=== PATIENT | male | born 1945 | race Caucasian/White ===

== ENCOUNTER 2017-09-12 14:34 | Inpatient (IN) | payer OTHER ==
[~2017-09-12] VITALS: Ht 172.7 cm; Wt 78.5 kg
--- NOTE | ~2017-09-12 | EKG ---
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 : 1945 Requested By: Kavon Aguilar Order Number: [id number] Reading MD: Measurements Intervals [place] Rate: 75 P: NM: QRS: -56 QRSD: 112 T: 153 QT: 348 QTc: 389 Interpretive Statements Atrial fibrillation Ventricular tachycardia, unsustained Borderline IVCD with LAD RSR' in V1 or V2, right VCD or RVH Inferior infarct, old Consider anterior infarct Lateral leads are also involved Compared to ECG 09/13/2017 07:21:52 Ventricular tachycardia now present Right ventricular hypertrophy now present RSR' in V1 or V2 now present Myocardial infarct finding still present [email or web address] By: 9 9 Epiphany EpiphanyMD /ANAMIKA
--- NOTE | ~2017-09-12 | EKG ---
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
--- NOTE | ~2017-09-12 | EKG ---
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 By: 3 Epiphany Epiphany, /ANAMIKA
[2017-09-12 14:37] VITALS: BP 128/45
[2017-09-12] MEDS ORDERED: TYLENOL325 MG PO ×2 (14:43)
[2017-09-12] MEDS ORDERED: ACCUNEB SO1.25 MG/1 INH (14:44)
[2017-09-12] MEDS ORDERED: ASPIR 8181 MG PO (14:44)
[2017-09-12] MEDS ORDERED: LIPITOR40 MG PO (14:44)
[2017-09-12] MEDS ORDERED: SYMBICORT160 MCG/4. INH (14:44)
[2017-09-12] MEDS ORDERED: B12INJ IM (14:45)
[2017-09-12] MEDS ORDERED: CELEXA20 MG PO (14:45)
[2017-09-12] MEDS ORDERED: VITAMIN D2000 UNIT PO (14:45)
[2017-09-12] MEDS ORDERED: IRON325 PO (14:46)
[2017-09-12] MEDS ORDERED: FOLIC ACID1 MG PO ×2 (14:46)
[2017-09-12] MEDS ORDERED: TOPROL XL25 MG PO ×2 (14:47)
[2017-09-12] MEDS ORDERED: METFORMIN HCL500 MG PO ×2 (14:47)
[2017-09-12] MEDS ORDERED: BACTROBAN CREAM30 G1 TOP (14:51)
[2017-09-12] MEDS ORDERED: NICOTINE LOZENGE2 MG PO ×2 (14:52)
[2017-09-12] MEDS ORDERED: PROTONIX 20 MG20 M1 PO (14:53)
[2017-09-12] MEDS ORDERED: XARELTO15 MG PO ×2 (14:53)
[2017-09-12] MEDS ORDERED: SPIRIVA INH (14:54)
[2017-09-12] MEDS ORDERED: SPIRONOLACTONE25 M1 PO ×2 (14:54)
[2017-09-12] MEDS ORDERED: FUROSEMIDE 20 M20 MG PO ×2 (14:55)
[2017-09-12] MEDS ORDERED: NITROGLYCERIN0.4 MG SUBLING (14:55)
[2017-09-12] MEDS ORDERED: GOLD BOND BODY TOP (14:55)
[2017-09-12] MEDS ORDERED: NEURONTIN 300300 M1 PO ×2 (14:56)
[2017-09-12] MEDS ORDERED: NEURONTIN600 MG PO ×2 (14:57)
[2017-09-12] MEDS ORDERED: PRINIVIL20 M1 PO (14:57)
[2017-09-12 15:38] LABS: ABSOLUTE EOSINOPHILS 0.1 thou/uL (0.0-0.7); ABSOLUTE LYMPHOCYTES 1.2 thou/uL (0.8-5.3); ABSOLUTE MONOCYTES 1.3 thou/uL (0.0-1.2); ABSOLUTE NEUTROPHILS 5.1 thou/uL (1.6-8.1); BASOPHILS 0.6 %; EOSINOPHILS 1.1 %; HEMATOCRIT 27.6 % (42.0-52.0); LYMPHOCYTES 15.5 %; MCH 29.7 pg (26.0-34.0); MCHC 32.5 g/dL (28.0-37.0); MCV 91.6 fL (80.0-100.0); MONOCYTES 17.2 %; MPV 9.1 fl. (7.2-11.1); NUCLEATED RBCS 0 /100WBC; PLATELET COUNT* 207 thou/uL (150-400); POLYS 65.6 %; RBC 3.01 mil/uL (4.50-6.00); RDW-CV 17.5 % (10.5-14.5); WBC 7.8 thou/uL (4.0-11.0)
[2017-09-12 15:46] LABS: CALCIUM 8.5 mg/dL (8.5-10.1); CREATININE 1.4 mg/dL (0.6-1.3); POTASSIUM 4.3 mmol/L (3.5-5.1)
[2017-09-12 15:51] LABS: ALBUMIN 2.8 g/dL (3.4-5.0); TOTAL BILIRUBIN 0.5 mg/dL (<0.1-1.0); TOTAL PROTEIN 6.9 g/dL (6.4-8.2)
[2017-09-12 17:07] VITALS: BP 143/77
--- NOTE | 2017-09-12 17:45 | NUR ---
PT ARRIVED TO ROOM 102 VIA CART. IV VANCOMYCIN INFUSING. PT ORIENTED TO ROOM. CALL LIGHT WITHIN REACH. INSTRUCTED ON CALLING FOR ASSIST IN GETTING OUT OF BED
[2017-09-12 17:56] VITALS: BP 132/104
[2017-09-12 20:00] VITALS: BP 105/69
--- NOTE | 2017-09-13 04:39 | NUR ---
ASSUMED CARE OF PATIENT AT APPROXIMATELY 1999. UPON FIRST ASSESSMENT, PATIENT C/O PAIN IN HIS RIGHT FOOT D/T GANGRENE. PATIENT WAS GIVEN PAIN MEDICATION X 1 OVERNIGHT. PATIENT CONTINUES TO BE ON 2 LITERS O2 AND SATTING ABOVE 93%. INFECTIOUS DISEASE CONSULTED FOR PATIENT. PATIENT HAS A VANC TROUGH SCHEDULED FOR 09/14/17 AT 0830. MRI OF PATIENT'S RIGHT FOOT W/O CONTRAST IS ALSO SCHEDULED FOR TODAY (09/13/17). PEDAL PULSES ARE 1+ BILATERALLY IN LOWER EXTREMETIES. SCABS PRESENT ON BOTH LEGS, BUT ARE CLOSED AND ALMOST HEALED. HOURLY ROUNDING PERFORMED. NURSING TO FOLLOW-UP NECESSARY. ALL FALL PRECAUTIONS IN PLACE, INCLUDING CALL LIGHT WITHIN REACH. WILL CONTINUE TO MONITOR CLOSELY.
[2017-09-13 08:06] LABS: TROPONIN-I LEVEL <0.06 ng/mL (<0.06)
[2017-09-13 08:25] VITALS: BP 130/47
--- NOTE | 2017-09-13 08:30 | NUR ---
PT ARRIVED ON THE UNIT FROM [facility] AT 0825. REPORT TAKEN FRON DENISE. AGREE WITH HER ASSESSMENT. PT ON CARDIAC MONITER TRACING A-FIB. MADE PT COMFORTABLE. BED IN LOW POSITION CALL LIGHT IN REACH. FALL CONTRACT SIGNED WELL PT RIGHTS. PT SIGNED CONSENT FORM FOR MRI. .
[2017-09-13 12:00] VITALS: BP 135/54
--- NOTE | 2017-09-13 13:05 | EKG ---
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 MORALES : 1945 Requested By: Carolyne Avila Order Number: [id number] MD: Scott Zaragoza Measurements Intervals [place] Rate: 71 P: NM: QRS: -59 QRSD: 113 T: 83 QT: 440 QTc: 479 Interpretive Statements Atrial fibrillation Borderline IVCD with LAD Inferior infarct, old Probable anterior infarct, old No previous ECG available for comparison Electronically Signed On 09-13-2017 13:05:21 TURN SEWER by Scott Zaragoza [email or web address] <ELECTRONICALLY SIGNED> By: Scott Zaragoza MD, [facility] 09/13/17 [id number] [id number] 161 Scott Zaragoza MD, [facility] /EPI
--- NOTE | 2017-09-13 13:11 | EKG ---
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 DE LA FUENTE : 1945 Requested By: Donaldo Varela Order Number: [id number] MD: Scott Zaragoza Measurements Intervals [place] Rate: 66 P: [place]: QRS: 242 QRSD: 121 T: 104 QT: 451 QTc: 473 Interpretive Statements Atrial fibrillation inferior infarction old Nonspecific IVCD with LAD Anterolateral infarct, old Baseline wander in lead(s) I Electronically Signed On 09-13-2017 13:10:54 GARAGE DOOR INSTALLER by Scott Zaragoza [email or web address] <ELECTRONICALLY SIGNED> By: Scott Zaragoza MD, [facility] 09/13/17 1310 0 Scott Zaragoza MD, [facility] /EPI
[2017-09-13 14:00] VITALS: BP 130/52
--- NOTE | 2017-09-13 17:59 | NUR ---
PT HAS RESTED IN ROOM WATCHING TV OR SPEAKING ON THE PHONE. SENT DR LOYA YOU CALL REQUESTING TYLENOL FOR PTS TEMP OF 102.8. ORDER GIVEN. PT STILL HAS A TEMP BUT IS TRENDING DOWN AND IS NOW 102.2. PT HAS HAD NO S OR SX OF ADVERSE REACTION TO ABT. HE C/O PAIN IN HIS KNEE X1 AND WAS GIVEN 4MG OF MORPHINE. PT STATES THE PAIN HAS MOVED DOWN TO A 7 FROM A 9 SO WAS PARTIALLY EFFECTIVE. EDUCATION GIVEN ON DEMAND. HOURLY ROUNDING COMPLETE.
[2017-09-13 20:00] VITALS: BP 100/44
[2017-09-14 00:01] VITALS: BP 160/61
[2017-09-14 04:00] VITALS: BP 106/55
--- NOTE | 2017-09-14 05:26 | NUR ---
A&O X4 CALM COOPERITVE. PT REPORTS PAIN IN LEGS BELOW KNEE, GIVEN MEDICATIONS PT REPORTS PAIN IS "BETTER". VANCO TROUGH TODAY. PT HAS HAS A TEMP GIVEN TYLENOL, FEVOR SHOWN IMPROVEMENT. X1 MODERATE ASSITE. Q2 TURNS. SWAP OF ABSESS SENT TO LAB. 3L O2. PT X1 INCIDENT TACKYPNEA. BP PULSE WNL. FALL PRECAUTIONS IN PLACE. HOURLY ROUNDING FOR SAFETY
[2017-09-14 07:30] VITALS: BP 85/42
--- NOTE | 2017-09-14 10:44 | CON ---
[address] [address] CONSULTATION Name: IMTIAZ BRISCOE Room: [address] IN .R.#: [id number] Admission: 09/12/17 Attend Phys: Vane Kovacs Discharge: Date of : 41 Report #: [id number] THIS REPORT FOR: //name// CC: FAM unknown [facility] Kavon Aguilar DATE OF SERVICE: 09/13/2017 ATTENDING PHYSICIAN: Kavon Aguilar DO. REASON FOR EVALUATION: Deep infection, right foot, area of tissue necrosis involving the lateral aspect overlying the fifth metatarsal. HISTORY OF PRESENT ILLNESS: Chart reviewed, patient examined. This is a 72-year-old with significant medical history including diabetes mellitus type 2, also O2 requiring chronic obstructive pulmonary disease who has ongoing issue with right lateral foot wounds, presumably on the basis of pressure, I think there must be some degree of ischemia as well. He did note he has had recent evaluation including a dye test involving his lower extremity as recently as last [place], has not heard results. He noted increasing pain associated with the site. He normally gets his treatment at the [facility], in particular wound care clinic, but he was diverted due to the hospital being full. He believes he has had fevers and did experience some shaking chills as well over the course of the last 24 hours, although that has improved. Blood cultures are sterile thus far. Sed rate is 30. Plain film of the foot showed focal lucency within the lateral soft tissues at the level of the fifth metatarsophalangeal joint. No evidence of osteomyelitis. Lactic acid is 1.2. Creatinine is 1.4. He was started empirically on piperacillin/tazobactam as well as vancomycin. ALLERGIES: None known. MEDICATIONS: Include spironolactone, metoprolol, citalopram, atorvastatin, ferrous sulfate, pantoprazole, Zosyn, gabapentin, vancomycin, nitroglycerin, ondansetron, morphine. PAST MEDICAL HISTORY: As noted above, diabetes mellitus, chronic obstructive pulmonary disease, O2 requiring; hypertension, previous partial colectomy, appendectomy. SOCIAL HISTORY: Nonsmoker and distant ethanol use. FAMILY HISTORY: Noncontributory. REVIEW OF SYSTEMS: As above. Denies significant pulmonary related complaints. He had some nausea with emesis earlier in the week[place] [address] CONSULTATION Name: IMTIAZ BRISCOE Room: [address]#: [id number] Admission: 09/12/17 Attend Phys: Vane Kovacs Discharge: Date of : 41 Report #: [id number]. PHYSICAL EXAMINATION: GENERAL: Appears chronically ill, undernourished. He has mild to moderate distress. VITAL SIGNS: Temperature 100.2, pulse 68, respirations 20, blood pressure 130/47. SKIN: Warm, dry, no rashes. HEENT: Neck is supple. Oxygen per nasal cannula. LUNGS: Scattered coarse breath sounds, diminished. HEART: Distant, regular. I do not appreciate murmur. ABDOMEN: Soft, nontender, nondistended. EXTREMITIES: Distal right lower extremity lateral aspect overlying the fifth metatarsophalangeal joint has a blackened eschar. There is some moderate degree of marginal erythema. It is quite tender across the dorsum of the foot. Pulses appear to be diminished. There is an odor noted. GENITOURINARY: Deferred. RECTAL: Deferred. LABORATORY DATA: Blood cultures sterile thus far. CPK 29, troponin less than 0.06. Sed rate of 20. CRP of 20.8. CBC: White count of 7.8, H and H 9.0/27.6, platelets of 207. Electrolytes: Sodium 138, potassium 4.3, chloride 98, bicarbonate is 34, BUN and creatinine 24 and 1.4, anion gap of 6. LFTs unremarkable. Albumin of 2.8, total protein 6.9, estimated GFR of 50. 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 I think it is probably multifactorial etiology; seemingly there is secondary skin necrosis, perhaps complicated by infection. I think it is reasonable to continue empiric antimicrobial therapy at this point, may well need debridement per Vascular to evaluate possible ischemic component as well. We will try to optimize his nutritional status. Wound care as prescribed. <ELECTRONICALLY SIGNED> By: Richard Mills MD 09/14/17 1044 1211 [id number] Mills MD /nt
[2017-09-14 11:00] LABS: CALCIUM 7.9 mg/dL (8.5-10.1); CREATININE 2.1 mg/dL (0.6-1.3); POTASSIUM 4.6 mmol/L (3.5-5.1)
[2017-09-14 11:36] VITALS: BP 114/59
--- NOTE | 2017-09-14 11:54 | NUR ---
WOUND NURSE: PATIENT SEEN TO ADDRESS LESION ON THE RIGHT 5TH METATARSAL AND HEEL WOUND. RT METATARSAL LESION PRESENTS WITH STABLE BLACKENED ESCHAR MEASURING 2.0 X 2.5 CM. RIGHT HEEL LESION PRESENTS A SHALLOW OPEN FULL THICKNESS WOUND MEASURING 0.9 X 0.9 X 0.2 CM. PRESENT WITH DARK RED, NONGRANULATING TISSUE IN THE WOUND BED AND SMALL AMOUNT OF ACTIVE SANGUINOUS DRAINAGE. PERIWOUND TISSUE APPEARS CALLOUSED. WAS UNABLE TO DOPPLAR POSTERIOR TIBIAL OR DORSALIS PEDIS PULSES AND CAPILLARY REFILL IN TOES WAS 10 SECONDS. CLEANSED RIGHT FOOT WITH SOAP AND WATER, RINSED WITH WATER, THEN PATTED DRY. APPLIED AQUACEL AG UNDER ABD TO HEEL AND SWABBED METATARSAL WOUND WITH BETADINE, THEN WRAPPED WITH KERLEX ROLL GAUZE AND SECURED WITH TAPE. PATIENT TO RECEIVE HEELMEDIX BOOT TO OFFLOAD HEEL WOUND. PATIENT HAS VASCULAR CONSULT AND NURSE REPORTS PATIENT WAS SEEN BY [facility] THIS MORNING. DR. LOYA ALSO STATED HE ORDERED ARTERIAL STUDY FOR THIS PATIENT. PATIENT REPORTS THAT THE WOUND ON HIS HEEL HAS BEEN THERE FOR 2 MONTHS AND THAT HE HAS BEEN HAVING IT TREATED AT THE [facility].
--- NOTE | 2017-09-14 14:59 | NUR ---
RECEIVED PT CARE 0700. PT IS DROWSY, EASY TO ARROUSE, AND ORIENTED X4. BLOOD PRESSURE SOFT, 85/42. HELD AM BP MEDICATION. O2 SAT 100% ON 3L NC. TITRATED DOWN TO 2L NC. AM ASSESSMENT CHARTED. MEDS PER OCT. AGRICULTURAL EXTENSION SPECIALIST IN TO SEE THIS PATIENT AND DO A DRESSING CHANGE TO RIGHT FOOT. NEW WOUND PICTURE TAKEN OF PATIENTS RIGHT HEEL AND PLACED ON CHART. TO VOID, PATIENT SITS ON THE EDGE OF THE BED AND USES THE URINAL. PATIENT TRANSFERS FROM BED TO WHEELCHAIR WITH ASSIST X1-2. NEW COMPLAINTS OF RIGHT HIP PAIN THIS AFTERNOON. XRAY ORDERED PER DR CRONIN. HOSPITALIST RECOMMENDING PATIENT BE TRANSFERRED TO THE [facility] FOR CONTINUITY OF CARE. CASE MANAGEMENT FOLLOWING. BED ALARM ON. CALL LIGHT WITHIN REACH. WILL CONTINUE PLAN OF CARE.
--- NOTE | 2017-09-14 15:10 | NUR ---
CM ASSESSMENT: Pt was very sleepy but answered a few questions. Pt normally lives at home and is pretty independent. Pt wears [facility]. Pt has a walker that he can use as needed. Hx of HH through the [facility]. Per , [facility], which [facility] he normally receives all of his care, spoke with Phoebe with the [facility] transfer team [phone], she informed that they are on diversion. CM following.
[2017-09-14 16:00] VITALS: BP 172/55
[2017-09-14 17:28] LABS: CALCIUM 7.9 mg/dL (8.5-10.1); CREATININE 2.2 mg/dL (0.6-1.3); POTASSIUM 4.8 mmol/L (3.5-5.1)
--- NOTE | 2017-09-14 19:13 | NUR ---
PT PARTIALLY PROGRESSING TOWARDS GOALS. C/O RIGHT LEG/FOOT PAIN THROUGHOUT SHIFT. STATES HE CAN HARDLY MOVE IT ANYMORE. HEELS ELEVATED ON PILLOWS. PRAFO BOOT ORDERED AND PLACED ON PATIENT, BUT HE DID NOT TOLERATE THIS WELL AND MADE ME REMOVE THE BOOT. EDUCATED THE PATIENT ON THE IMPORTANCE OF KEEPING HIS HEELS OFF THE BED. IVF STARTED AND INFUSING PATENTLY. PRN PAIN MEDICATION GIVEN WITH PARTIAL RELIEF. PT REPOSITIONED FOR COMFORT. CONTINUES TO VOID PER URINAL. NO BOWEL MOVEMENT NOTED THIS SHIFT. TOLERATING HIS DIET WELL WITHOUT NAUSEA OR VOMITING. NO PLANS TO TRANSFER THIS PATIENT TO THE [facility] AT THIS TIME, THE [facility] IS ON DIV[facility]ION. CALL LIGHT WITHIN REACH. HOURLY ROUNDING CHARTED. BED ALARM ON.
[2017-09-14 20:00] VITALS: BP 90/45
[2017-09-15] VITALS (7 sets, daily range): BP systolic 103–137; BP diastolic 50–71
[2017-09-15 05:57] LABS: CALCIUM 7.7 mg/dL (8.5-10.1); CREATININE 2.1 mg/dL (0.6-1.3); POTASSIUM 4.1 mmol/L (3.5-5.1)
--- NOTE | 2017-09-15 06:56 | NUR ---
A&O X4 CALM COOPERITVE. PT REPORTS PAIN IN LEGS, GIVEN MORPHINE WITH RELIEF. 2L O2. OTHRO CAME IN AM REPORTED THAT VASCULAR NEEDS TO BE MORE SPECIFIC WITH WHAT IS GOING ON WITH PT WOUNDS. FLUIDS RUNNING. LUNGS ARE COARSE CRACKLES. PT DENIES ANY SOA. PT AFIB ON THE MONITOR HAD BOUTS OF 110-120 IN THE EARLY AM. VITALS WNL. FALL PRECAUTIONS IN PLACE. HOURLY ROUNDING FOR SAFETY.
[2017-09-15 15:29] LABS: HEMATOCRIT 27.4 % (42.0-52.0); HEMOGLOBIN 8.7 gm/dL (14.0-18.0); MCH 29.3 pg (26.0-34.0); MCHC 31.7 g/dL (28.0-37.0); MCV 92.6 fL (80.0-100.0); MPV 9.4 fl. (7.2-11.1); NUCLEATED RBCS 0 /100WBC; PLATELET COUNT* 174 thou/uL (150-400); RBC 2.96 mil/uL (4.50-6.00); RDW-CV 18.1 % (10.5-14.5); WBC 13.3 thou/uL (4.0-11.0)
[2017-09-15 15:48] LABS: ABSOLUTE EOSINOPHILS 0.5 thou/uL (0.0-0.7); ABSOLUTE LYMPHOCYTES 0.5 thou/uL (0.8-5.3); ABSOLUTE MONOCYTES 0.1 thou/uL (0.0-1.2); ABSOLUTE NEUTROPHILS 12.1 thou/uL (1.6-8.1); ANISOCYTOSIS 1+; POIKILOCYTOSIS 1+
[2017-09-15 15:49] LABS: PLATELET ESTIMATE ADEQUATE
--- NOTE | 2017-09-15 17:25 | 2DMMODE ---
[place] [address] 2 D/M-MODE ECHOCARDIOGRAM Name: IMTIAZ BRISCOE Room: [address] IN [facility]#: [id number] Admission: 09/12/17 Attend Phys: Kavon Aguilar Discharge: Date of : 41 Date of Service: 09/15/17 1724 Report #: [id number] THIS REPORT FOR: //name// APPROVED REPORT Study performed: 09/15/2017 14:54:27 EXAM: Comprehensive 2D, Doppler, and color-flow Echocardiogram Patient Location: In-Patient Room #: [facility] Status: routine BSA: 1.88 HR: 110 bpm BP: 112/56 mmHg Rhythm: Atrial Fibrillation Other Information Study Quality: Good Indications Congestive Heart Failure 2D Dimensions LVEF(%): 40.57 (>50%) IVSd: 12.89 (7-11mm) LVOT Diam: 19.33 (18-24mm) LVDd: 47.49 mm PWd: 11.33 (7-11mm) Ascending Ao: 33.43 (22-36mm) LVDs: 38.10 (25-40mm) Aortic Root: 34.64 mm Urias's LVEF: 40.57 % Volumes Left Atrial Volume (Systole) LA ESV Index: 45.90 mL/m2 Aortic Valve AoV Peak Augustus.: 1.46 m/s AO Peak Gr.: 8.52 mmHg LVOT Max P.25 mmHg AO Mean Gr.: 4.61 mmHg LVOT Mean P.51 mmHg LVOT Max V: 0.90 m/s AO V2 VTI: 20.55 cm LVOT Mean V: 0.56 m/s NAVEEN (VTI): 1.95 cm2 LVOT V1 VTI: 13.68 cm Mitral Valve MV Decel. Time: 141.04 [place] [address] 2 D/M-MODE ECHOCARDIOGRAM Name: IMTIAZ BRISCOE Room: [address] IN [facility]#: [id number] Admission: 09/12/17 Attend Phys: Kavon Aguilar Discharge: Date of : 41 Date of Service: 09/15/17 1724 Report #: [id number] MV PHT: 40.90 ms MVA (PHT): 5.38 cm2 TDI Medial E' Augustus.: 0.11 m/s Lateral E' Augustus.: 0.16 m/s Pulmonary Valve PV Peak Augustus.: 0.86 m/s PV Peak Gr.: 2.97 mmHg Tricuspid Valve TR Peak Gr.: 49.07 mmHg RVSP: 59.00 mmHg Left Ventricle The left ventricle is normal size. There is global hypokinesis of the left ventricle. Moderate concentric left ventricular hypertrophy. Left ventricular systolic function is moderate to severely decreased. LVEF is 35%. The left ventricular diastolic function is normal. Right Ventricle Right ventricle is dilated. The right ventricular systolic function is normal. Atria Left atrium is severely dilated. Right atrium is moderately dilated. Aortic Valve Severe aortic valve sclerosis. No aortic regurgitation is present. Mild to moderate aortic stenosis. Mitral Valve Mitral valve leaflets are moderately thickened. Mild mitral regurgitation. No evidence of mitral valve stenosis. Tricuspid Valve The tricuspid valve is normal in structure. Moderate tricuspid regurgitation. The RVSP is 55-60 mmHg. Pulmonic Valve The pulmonary valve is normal in structure. There is no pulmonic valvular regurgitation. Great Vessels The aortic root is normal in size[place] [address] 2 D/M-MODE ECHOCARDIOGRAM Name: IMTIAZ BRISCOE Room: [address] IN [facility]#: [id number] Admission: 09/12/17 Attend Phys: Kavon Agiular Discharge: Date of : 41 Date of Service: 09/15/17 1724 Report #: [id number] dilated. Pericardium There is no pericardial effusion. <Conclusion> Left ventricular systolic function is moderate to severely decreased. LVEF is 35%. There is global hypokinesis of the left ventricle. Right ventricle is dilated. Left atrium is severely dilated. Right atrium is moderately dilated. Severe aortic valve sclerosis. Mild to moderate aortic stenosis. No aortic regurgitation is present. No evidence of mitral valve stenosis. Mild mitral regurgitation. Moderate tricuspid regurgitation. The RVSP is 55-60 mmHg. <ELECTRONICALLY SIGNED> By: Gelacio Quan MD, [facility] 09/15/17 1724 23 23 Gelacio Quan MD, FACC /INF
--- NOTE | 2017-09-15 18:00 | NUR ---
PT ABLE TO ANSWER ORIENTATION QUESTIONS. PT DROWSY. PT C/O OF BILATERAL LOWER LEG PAIN. IV PAIN MEDICATION ADMININSTERED PER EMAR. PT C/O OF PAIN IN CHEST WHEN COUGHING. PT HAD SMALL BM TODAY. PT VOIDING DARK YELLOW URINE. PT HAD TEMP OF 101.1. TYELNOL ADMININSTERED PER EMAR. FEET ELEVATE. PT REFUSED COMPRESSION BOOTS. PT BUTTOCKS IS RED AND NOT BLANCHABLE. PT REPOSITIONED. PT TO HAVE PROCEDURE TOMORROW PT REPORTS HE DID NOT TALK TO AND DOES NOT KNOW ABOUT A PROCEDURE TOMORROW. CONSENT NOT SIGNED. UPDATE GIVEN TO PT SO.
[2017-09-16 00:34] VITALS: BP 98/48
[2017-09-16 04:34] VITALS: BP 95/62
--- NOTE | 2017-09-16 05:18 | NUR ---
PT CARE ASSUMED AFTER REPORT. ASSESSMENT COMPLETE. AFIB ON MONITOR. NPO SINCE MIDNOC FOR SURGERY TODAY. IVF INFUSING. PT DROWSY AND IMPULSIVE. FALL PRECAUTIONS IN PLACE INCLUDING BED ALARM. SLOW TO PROGRESS TOWARDS GOALS.
[2017-09-16 06:01] LABS: HEMATOCRIT 25.7 % (42.0-52.0); HEMOGLOBIN 8.3 gm/dL (14.0-18.0); MCH 29.5 pg (26.0-34.0); MCHC 32.4 g/dL (28.0-37.0); MCV 91.2 fL (80.0-100.0); MPV 9.7 fl. (7.2-11.1); PLATELET COUNT* 163 thou/uL (150-400); RBC 2.81 mil/uL (4.50-6.00); RDW-CV 17.7 % (10.5-14.5); WBC 10.7 thou/uL (4.0-11.0)
[2017-09-16 06:42] LABS: CALCIUM 7.8 mg/dL (8.5-10.1); CREATININE 2.2 mg/dL (0.6-1.3); MAGNESIUM 1.5 mg/dL (1.8-2.4); POTASSIUM 4.4 mmol/L (3.5-5.1); TOTAL BILIRUBIN 0.8 mg/dL (<0.1-1.0); TOTAL PROTEIN 5.8 g/dL (6.4-8.2)
[2017-09-16 08:00] VITALS: BP 125/66
--- NOTE | 2017-09-16 08:00 | NUR ---
AM ASSESSEMENT COMPLETE, DEFER TO COMPUTER CHARTING. SERVICE PORTER TRACKING AFIB. ORIENTED TO SELF ONLY, CONFUSED - ATTEMPTED TO REORIENTATE PATIENT UNABLE AT THIS TIME. REPORTS HAVING DISCOMFORT IN LEGS, WILL GIVE REPEAT PAIN MEDICATION WITH AM MEDS. LUNGS COARSE/CRACKLES - 02 ON 2L PER NC, HOB ELEVATED. BED ALARM ON FOR SAFETY. CALL LIGHT WITHIN REACH. WILL MONITOR.
[2017-09-16 12:46] VITALS: BP 103/48
[2017-09-16 12:57] LABS: ABSOLUTE LYMPHOCYTES 1.1 thou/uL (0.8-5.3); ABSOLUTE MONOCYTES 0.9 thou/uL (0.0-1.2); ABSOLUTE NEUTROPHILS 8.8 thou/uL (1.6-8.1); ATYPICAL LYMPHS 7 %
[2017-09-16 12:59] LABS: ANISOCYTOSIS 3+; BURR CELLS 2+; HYPOCHROMASIA 1+; OVALOCYTES 2+; POIKILOCYTOSIS 2+; SCHISTOCYTES 1+
[2017-09-16 13:00] LABS: PLATELET ESTIMATE DECREASED; POLYCHROMASIA 1+
[2017-09-16 16:03] VITALS: BP 106/62
--- NOTE | 2017-09-16 18:29 | NUR ---
MEDICAL STAFF COORDINATOR TRACKING WITH NO CHANGE IN RHYTHM. CONFUSED TODAY, ATTEMPTING TO GET OUT OF BED ON AND OFF DURING SHIFT. PATIENT MOVED CLOSE TO NURSES STATION FOR SAFETY, BED ALARM REMAINS ON - CALL LIGHT WITHIN REACH. IV INFUSING, DRESSING CHANGED. HOB ELEVATED, 02 ON 2L PER NC. WILL CONTINUE WITH PLAN OF CARE.
[2017-09-16 20:00] VITALS: BP 128/68
[2017-09-16 23:22] LABS: HEMATOCRIT 26.1 % (42.0-52.0); HEMOGLOBIN 8.4 gm/dL (14.0-18.0); MCH 30.1 pg (26.0-34.0); MCHC 32.3 g/dL (28.0-37.0); MPV 9.9 fl. (7.2-11.1); RBC 2.81 mil/uL (4.50-6.00); RDW-CV 18.6 % (10.5-14.5); WBC 13.4 thou/uL (4.0-11.0)
[2017-09-17] VITALS: BP 115/63
[2017-09-17 04:00] VITALS: BP 130/47
--- NOTE | 2017-09-17 05:23 | NUR ---
PT CARE ASSUMED AFTER REPORT. ASSESSMENT COMPLETE. AFIB ON MONITOR. IVF INFUSING. DRESSING TO R FOOT C/D/I. ELEVATED ON PILLOWS. O2 2L NC. ORIENTED X1. BELIEVES HE IS IN [place]. BLOOD CULTURES X2 AFTER TEMP OF 101.2 AXILLARY. CALL LIGHT IN REACH. BED IN LOWEST POSITION. FALL PRECAUTIONS IN PLACE INCLUDING BED ALARM. NOT PROGRESSING TOWARDS GOALS.
[2017-09-17 06:04] LABS: ALBUMIN 1.9 g/dL (3.4-5.0); CALCIUM 7.7 mg/dL (8.5-10.1); CREATININE 2.5 mg/dL (0.6-1.3); MAGNESIUM 1.6 mg/dL (1.8-2.4); POTASSIUM 4.2 mmol/L (3.5-5.1); TOTAL BILIRUBIN 0.8 mg/dL (<0.1-1.0); TOTAL PROTEIN 5.8 g/dL (6.4-8.2)
--- NOTE | 2017-09-17 07:45 | NUR ---
ASSUMED CARE OF PT ASSESSED AND DOCUMENTED. PT IS ON CARDIAC MONITER TRACING A-FIB WITH PVC'S HR 85. PT BARELY RESPONDS. HE IS LETHARGIC AND WILL NOT ANSW QUESTIONS. HE IS AFEBRILE AND VSS WNL. PT HAS COARSE LUNGS SOUNDS. PT'S DRSG TO FT ARE CLEAN DRY AND INTACT. YOU CAN SMELL ODOR FROM THE R FT R/T HIS GANGRENE. PTS COUGH IS NON PRODUCTIVE. FALL PRECAUTIONS ARE IN PLACE PER FACILITY PROTOCOL. BED IS IN LOW POSITION CALL LIGHT IS IN REACH. WM.
[2017-09-17 08:00] VITALS: BP 125/44
[2017-09-17 12:10] VITALS: BP 121/63
[2017-09-17 16:15] VITALS: BP 116/83
[2017-09-17 17:06] LABS: IgA 463 mg/dL (61-437); IgG 1099 mg/dL (700-1600); IgM 26 mg/dL (15-143)
--- NOTE | 2017-09-17 17:48 | NUR ---
PT HAS SLEPT MOST OF THIS SHIFT. HE HAS BEEN ORIENTED AT TIMES CONFUSED AT TIMES. I WAS ABLE TO ROUSE HIM TO EAT SOME OF HIS BREAKFAST AND SOME OF HIS LUNCH. PT DID NOT EAT ANY DINNER. PT HAS HAD NO S OR SX OF ADVERSE REACTION TO ABT. GAVE 2ND DOSE OF MG+ PER PROTOCOL AND PUT IN FOR REDRAW. PT HAS BEEN Q2 HR TURN & REPO. FT HAVE BEEN ELEVATED. PT CONT ON 2L OF . PTS GIRLFRIEND CALLS THRU OUT THE DAY FOR UPDATES. SHE HAS NO TRANSPORTATION AND IS ANXIOUS.
[2017-09-17 19:14] LABS: BE -2.5 mmol/L (-2 to +3); HCO3 23.9 mmol/L (22.0-26.0); PCO2 49.2 mmHg (35.0-45.0); PO2 95.2 mmHg (75.0-100.0); pH 7.305 (7.340-7.450)
[2017-09-17 20:30] VITALS: BP 134/56
[2017-09-18] VITALS: BP 141/63
[2017-09-18 04:00] VITALS: BP 157/56
--- NOTE | 2017-09-18 04:14 | NUR ---
ALERT TO SELF AND PLACE AT TIMES. PT NEEDS TO BE REORIENTED TO PLACE. PT IS CONFUSED AND IMPUSLIVE. PT HAS WOUNDS ON LEGS THAT DRESSING NEED TO BE CHANGED Q3 DAYS. PT NEEDS HELP TO FEED. PT HAS BEEN INCONTENT OF STOOL. PT PULLED OUT IV NEW IV STARTED IN RIGHT FOREARE. PT ON 2L O2. AFIB ON THE MONITOR. VITALS WNL. FALL PRECAUTIONS IN PLACE. HOURLY ROUNDING FOR SAFETY.
[2017-09-18 04:41] LABS: HEMATOCRIT 27.1 % (42.0-52.0); HEMOGLOBIN 8.7 gm/dL (14.0-18.0); MCH 29.4 pg (26.0-34.0); MCV 91.9 fL (80.0-100.0); MPV 9.9 fl. (7.2-11.1); NUCLEATED RBCS 0 /100WBC; PLATELET COUNT* 155 thou/uL (150-400); RBC 2.95 mil/uL (4.50-6.00); RDW-CV 18.4 % (10.5-14.5); WBC 14.1 thou/uL (4.0-11.0)
[2017-09-18 05:18] LABS: CALCIUM 8.1 mg/dL (8.5-10.1); CREATININE 2.6 mg/dL (0.6-1.3); POTASSIUM 4.8 mmol/L (3.5-5.1)
[2017-09-18 06:20] LABS: ABSOLUTE EOSINOPHILS 0.3 thou/uL (0.0-0.7); ABSOLUTE LYMPHOCYTES 1.8 thou/uL (0.8-5.3); ABSOLUTE MONOCYTES 1.1 thou/uL (0.0-1.2); ABSOLUTE NEUTROPHILS 10.9 thou/uL (1.6-8.1); ATYPICAL LYMPHS 1 %; PLATELET ESTIMATE ADEQUATE
[2017-09-18 06:21] LABS: ANISOCYTOSIS 1+; BURR CELLS 1+; POIKILOCYTOSIS 1+
--- NOTE | 2017-09-18 07:45 | NUR ---
ASSUMED CARE OF PT ASSESSED AND DOCUMENTED. PT ON CARDIAC MONITER TRACING A-FIB PVC'S HR 82. PT LESS CONFUSED THAN YESTERDAY. HE IS A&0 X3. PT HAS A NONPRODUCTIVE COUGH WITH WHEEZES. PT CONT ON FALL RISK PER FACILITY PROTOCOL. PT DID SPEAK OF HIS MOMS NEW CAR AND ASKED ME WHAT SHE DID WITH IT. UNABLE AT THIS TIME TO VERIFY IF MOM HAS A NEW CAR OR IS ALIVE. WILL SPEAK WITH AUTHORIZED CONTACT WHWN SHE CALLS..
[2017-09-18 08:00] VITALS: BP 148/61
--- NOTE | 2017-09-18 09:25 | NUR ---
PAGED DR LOYA. PT FIGHTING STAFF TO GET OUT OF BED. WHILE DR CRONIN WAS EXAMINING PT PT C/O PAIN. PAIN MEDICATION D/C'D YESTERDAY . PT FOUGHT WITH STAFF TRYING TO GET OUT OF BED AND STATED HE WANTED TO GO SOMEWHERE ELSE. DR LOYA GAVE V.O FOR MORPHINE IV PRN Q4 HOURS. WHEN MEDICATION ON OCT I ASKED PT ABOUT HIS PAIN HE RATED PAIN A 3 ON PAIN SCALE I ASKED PT IF HE WANTED TO WAIT ON PAIN MEDICATION AND HE STATED HE DID. PT IS NOW IN BEDSIDE RECLINER WITH FEET ELEVATED AND HAS BEEN BATHED. CHAIR ALARM IS ON. PT HAS BEEN UP TO BEDSIDE COMMODE ASSIST X3 AND HAS HAD A BM. PT HAS SPOKEN WITH GIRLFRIEND ON THE PHONE AND SEEMS TO BE IN BETTER SPIRITS. WILL MONITER PTS PAIN.
[2017-09-18 11:00] VITALS: BP 155/114
--- NOTE | 2017-09-18 11:01 | NUR ---
PT IS HAVING HALLUCINATIONS. HE STATED THERE WAS A GIRL PASSED OUT IN THE CHAIR AND HAS BEEN THERE SINCE HIS BATH. TOLD PT I DID NOT SEE WHAT HE DID. I THEN SAT IN THE CHAIR. PT STATED HE EYES MUST BE HAVING TROUBLE. REASSURED PT HE HAS BEEN VERY SICK. PT NOW WATCHING TV.
--- NOTE | 2017-09-18 13:30 | NUR ---
CONTINUE TO FOLLOW, MET WITH PT AND SPOKE WITH HIS S/O DWAINE PAEZ OVER THE PHONE. PT LIVES WITH DWAINE. SHE ASSISTS PT WITH COOKING/CLEANING AND DRIVING. SHE STATES THAT PT IS NORMALLY FAIRLY INDEPENDENT AT HOME. USES WALKER BUT IS ABLE TO DO HIS OWN ADLS. HE HAS O2 AND NEBULIZER AND WALKER. PT HAS HAD [facility] AND BEEN TO SNF AT [facility] IN THE PAST. DISCUSSED CURRENT POC, PT TO HAVE TEST IN WOUND CENTER TODAY. PT IS HOPEFUL TO GET 'SOMETHING' DONE TO HIS LEG. DWAINE ASKED THAT CM DISCUSSED DPOA WITH HIM. SHE STATED THAT SHE IS PT'S MAIN SUPPORT. THAT HE HAS A DTR, BUT THEY ARE ESTRANGED. WILL DISCUSS FURTHER WITH PT TOMORROW. DID ASK IS SHE WAS ABLE TO ASSIST PT AT HOME IF NEEDED IV ANTIBX AND SHE WAS NOT SURE SHE COULD DO THAT. SHE WOULD LIKE TO BE INCLUDED IN THE POC DISCUSSION. WILL FOLLOW
[2017-09-18 16:00] VITALS: BP 142/51
--- NOTE | 2017-09-18 17:44 | NUR ---
PT HAS BEEN UP THIS SHIFT IN BEDSIDE RECLINER. HE HAS CONT TO BE ALERT. HE HAS FED HIMSELF AND HAS AN IMPROVED APPETITE. NO S OR SX OF ADVERSE REACTION TO ABT NOTED. PT DID ASK IF HE COULD SMOKE HERE. SOMETIMES HE STATES HE SMOKES AND OTHER TIMES HE STATES HE QUIT SIX MONTHS AGO. PT BATHED TODAY AND HAD A BM. HOURLY ROUNDING COMPLETE. DRSG ON FOOT REMAINS CLEAN DRY AND INTACT.
--- NOTE | 2017-09-18 18:04 | NUR ---
PT'S AUTHORIZED CONTACT CALLS THROUGH OUT THE DAY. SHE IS ANXIOUS. SHE DID STATE PTS MOTHER IS .
[2017-09-18 20:00] VITALS: BP 166/76
--- NOTE | 2017-09-19 02:50 | NUR ---
PT ALERT CONFUSED. NOT EASILY REDIRECTED. IMPULSIVE. DOES NOT USE CALL LIGHT APPROPRIATELY. NS AT 80MLS/HR. TELEMETRY SHOWS AFIB OCCASIONAL VENTRICULAR ECTOPY. BREATH SOUNDS DIMINISHED WITH WHEEZING. O2 AT 1 L N/C. R FOOT DRSG INTACT. WILL CONTINUE TO MONITOR.
[2017-09-19 04:32] LABS: BE -5.2 mmol/L (-2 to +3); HCO3 20.6 mmol/L (22.0-26.0); PO2 108.3 mmHg (75.0-100.0); pH 7.318 (7.340-7.450)
[2017-09-19 05:00] VITALS: BP 159/80
[2017-09-19 05:32] LABS: CALCIUM 8.3 mg/dL (8.5-10.1); CREATININE 2.5 mg/dL (0.6-1.3); MAGNESIUM 1.9 mg/dL (1.8-2.4); PHOSPHORUS* 4.5 mg/dL (2.5-4.9); POTASSIUM 5.9 mmol/L (3.5-5.1)
[2017-09-19 08:00] VITALS: BP 166/64
--- NOTE | 2017-09-19 08:04 | CON ---
[address] [address] CONSULTATION Name: IMTIAZ BRISCOE Room: [address] IN .R.#: [id number] Admission: 09/12/17 Attend Phys: Vane Kovacs Discharge: Date of : 41 Report #: [id number] THIS REPORT FOR: //name// CC: FAM unknown [facility] Kavon Aguilar DATE OF SERVICE: 09/18/2017 REFERRING PHYSICIAN: Kavon Aguilar DO CHIEF COMPLAINT: Dyspnea. HISTORY OF PRESENT ILLNESS: This patient is a very poor historian. He is a chronic smoker. It is unclear as to how much he actually does smoke. He was admitted to the hospital because of a right toe infection. Information is mainly taken from the patient's records, [facility]. He was brought to this hospital because of diversion at the [place] at that time. Over the course of the few days that he has been admitted to the hospital, he has been developing shortness of breath. We were asked to see the patient because of his dyspnea. PAST MEDICAL HISTORY: Significant for osteomyelitis of the fifth metatarsal head of the proximal phalanx on the right side. History of hypertension, type 2 diabetes, acute kidney injury, chronic kidney disease, anemia. He is currently being seen by Vascular Surgery, Nephrology, Cardiology and Infectious Disease. SOCIAL HISTORY: It is implied in some of the records that he is a nonsmoker. The patient states he is a smoker or had been, but he quit 6 months ago. REVIEW OF SYSTEMS: Not obtainable at this time. The patient is noncooperative in that respect. FAMILY HISTORY: Noncontributory for his advanced age and uncooperativeness at this time. ALLERGIES: None known. CURRENT MEDICATIONS: Consist of Xarelto, Lipitor, Celexa, Lanoxin, iron supplement, magnesium supplement, metoprolol, Zyprexa, Zofran, Protonix, potassium and phosphorus replacement as needed, tramadol for pain. PHYSICAL EXAMINATION: VITAL SIGNS: Blood pressure 142/51, pulse rate 77 and regular, respiratory rate 16 and nonlabored, temperature 97.9 degrees. The patient's weight [address] [place] [address] CONSULTATION Name: IMTIAZ BRISCOE Room: [address]#: [id number] Admission: 09/12/17 Attend Phys: Vane Kovacs Discharge: Date of : 41 Report #: [id number] GENERAL APPEARANCE: He is awake, he is alert. He does answer some questions. Does not have a real good line of focus at this time. He does admit to not being short of breath. He states that he uses oxygen continuously at home. He is not aware of his COPD diagnosis. HEENT: Head is atraumatic. EYES: Pupils are round and equal, reactive. Oral cavity: He is edentulous. Mucous membranes are moist. NECK: No adenopathy. CHEST: Coarse breath sounds, scattered rhonchi. CARDIOVASCULAR: Regular rhythm. ABDOMEN: Soft. No organomegaly or tenderness. EXTREMITIES: Right lower extremity, the distal portion of his foot covering his toes is dressed. There is some drainage on the dressing site. There is no edema. SKIN: Warm to touch bilaterally. NEUROLOGIC: He is cooperative to some degree. He moves all 4 extremities. There is no weakness. LABORATORY DATA: Arterial blood gases obtained on 09/17/2017 revealed a pH 7.31, pCO2 of 49, pO2 of 95, bicarbonate of 23 while on room air. IgG is normal, IgA slightly elevated, IgM is normal. Hemoglobin and hematocrit of 8.7 and 27; white count 14,000; platelet count 155,000. Today, his electrolytes reveal sodium 140, potassium 4.8, chloride 105, CO2 of 26, BUN of 44, creatinine 2.6, eGFR of 24. MEDICAL IMAGING STUDIES: CT of the brain did not reveal any acute injury. On 09/15/2017 a chest x-ray performed, demonstrating some cardiomegaly. There is no evidence of congestive failure. There were no infiltrates or mass effect or effusions. ASSESSMENT: 1. Peripheral vascular disease. 2. Tobacco abuse. 3. Chronic obstructive airways disease, most likely. 4. Chronic kidney disease. 5. Shaxm-[id number] respiratory failure with evidence of hypercapnia. RECOMMENDATION: Aerosol treatments, aspiration precautions. Followup chest x-ray in the a.m. We will initiate a short course of steroid therapy and initiate aerosol treatments since they have not been ordered at this point. <ELECTRONICALLY SIGNED> By: Charles Cristobal MD 09/19/17 0804 [id number] Robertson MD /nt
[2017-09-19 12:00] VITALS: BP 142/64
[2017-09-19 12:12] VITALS: BP 139/58
--- NOTE | 2017-09-19 13:58 | NUR ---
CONTINUE TO FOLLOW. MET WITH PT. HE STILL HAS SOME CONFUSION BUT ABLE TO ANSWER QUESTIONS. ASKED IF HE KNEW WHERE HE WAS AND HE WANTED HIS WATER BOTTLE TURNED THAT HAS WRITING ON IT THAT STATED '[facility]'. DISCUSSED DPOA WITH PT, HE STATED HE'D WANT DWAINE BUT WANTS TO TALK WITH HER ABOUT IT. JOSE JTROUBLE SHOOTER WITH VASCULAR HERE AND SAW PT. DID ASK HER TO CALL PT'S S/O DWAINE TO DISCUSS PLAN PER REQUEST. UPDATED DWAINE ON THOSE ISSUES AND TO EXPECT A CALL. WILL FOLLOW
[2017-09-19 17:01] VITALS: BP 156/62
[2017-09-19 20:00] VITALS: BP 115/91
[2017-09-20] VITALS: BP 154/48
--- NOTE | 2017-09-20 03:18 | NUR ---
PT ALERT CONFUSED VISUAL HALLUCINATIONS AT TIMES. IMPULSIVE ATTEMPTS TO GET OOB WITHOUT ASSIST. BED ALARMS ON. PT SOMEWHAT REDIRECTABLE. TELEMETRY SHOWS AFIB. O2 AT LITERS NC. R FT MARKOSG D/I. WILL CONTINUE TO MONITOR.
[2017-09-20 04:00] VITALS: BP 137/53
[2017-09-20 05:51] LABS: CALCIUM 7.9 mg/dL (8.5-10.1); CREATININE 2.2 mg/dL (0.6-1.3); POTASSIUM 4.5 mmol/L (3.5-5.1)
--- NOTE | 2017-09-20 06:26 | NUR ---
BLOOD GLUCOSE MONITORING SHOWING INCREASE. DR DELUCA NOTIFIED. ORDERS FOR SSI TO START THIS AM.
[2017-09-20 08:00] VITALS: BP 158/68
--- NOTE | 2017-09-20 11:34 | NUR ---
pt confused asking when 'they ' are coming to get him and he needs to be ready, unable to state where he is and yelling help. this am, attempts to get out of bed by self, bed alarm on, frequent rounding and reorientation as needed. pt reoriented multiple times. pt currently sitting in bed, appears comfortable, denies any needs.
[2017-09-20 12:00] VITALS: BP 189/80
--- NOTE | 2017-09-20 12:30 | NUR ---
PT UP TO CHAIR WITH SBA. PT GIVEN PAIN MED ORDERED WITH STATED RELIEF ON REASSESSMENT.
--- NOTE | 2017-09-20 14:04 | NUR ---
PT BACK TO BED, APPEARS TO BE CONFUSED AGAIN ASKING THIS NURSE IF THE DOGS WERE FED RIGHT AND POINTING TO CORNER OF ROOM. PT REDIRECTED.
[2017-09-20 16:00] VITALS: BP 179/106
--- NOTE | 2017-09-20 19:05 | NUR ---
PT HAS BECOME MORE CONFUSED THROUGH EVENING, TRYING TO GET OUT OF BED AND YELLING AND MORE DIFFICULT TO RDIRECT OR ORIENT. PT CURRENLTY SITTING IN BED, APPEARS COMFORTABLE, WATCHING TV.
[2017-09-20 20:00] VITALS: BP 173/69
[2017-09-21] VITALS (7 sets, daily range): BP systolic 99–174; BP diastolic 53–97
--- NOTE | 2017-09-21 05:23 | NUR ---
PT CARE ASSUMED AFTER REPORT. ASSESSMENT COMPLETE. AFIB ON MONITOR. IVF INFUSING. PT WITH CONTINUED CONFUSION AND HALLUCINATIONS. YELLS OUT AT TIMES FOR HIS URINAL. DRESSING TO R FOOT C/D/I. DENIES PAIN. O2 2L NC. CALL LIGHT IN REACH. BED IN LOWEST POSITION. FALL PRECAUTIONS IN PLACE INCLUDING BED ALARM. SLOW TO PROGRESS TOWARDS GOALS.
[2017-09-21 06:37] LABS: HEMATOCRIT 23.7 % (42.0-52.0); HEMOGLOBIN 7.6 gm/dL (14.0-18.0); MCHC 31.9 g/dL (28.0-37.0); MCV 90.7 fL (80.0-100.0); MPV 9.9 fl. (7.2-11.1); NUCLEATED RBCS 0 /100WBC; PLATELET COUNT* 193 thou/uL (150-400); RBC 2.61 mil/uL (4.50-6.00); RDW-CV 18.2 % (10.5-14.5); WBC 17.4 thou/uL (4.0-11.0)
[2017-09-21 06:51] LABS: CALCIUM 8.3 mg/dL (8.5-10.1); PHOSPHORUS* 3.2 mg/dL (2.5-4.9); POTASSIUM 4.3 mmol/L (3.5-5.1)
[2017-09-21 07:08] LABS: ABSOLUTE LYMPHOCYTES 1.2 thou/uL (0.8-5.3); ABSOLUTE MONOCYTES 0.5 thou/uL (0.0-1.2); ABSOLUTE NEUTROPHILS 15.7 thou/uL (1.6-8.1); ATYPICAL LYMPHS 1 %
[2017-09-21 07:09] LABS: ANISOCYTOSIS 2+; OVALOCYTES 1+
--- NOTE | 2017-09-21 10:41 | NUR ---
PT SITTING IN CHAIR, DENIES ANY NEEDS CURRENTLY. PT CONTINUES WITH INTERMITTENT CONFUSION, YELLING OUT AT TIMES. REORIENTED AND REDIRECTED. PT UP WITH SBA TO CHAIR. PT GIVEN PAIN MED PER ORDER FOR BILATERAL LEG PAIN THIS AM. PT REPORTED RELIEF OF PAIN. S.O. HAS CALLED MULTIPLE TIMES TO SPEAK WITH PT AND NURSE. QUESTIONS ANSWERED
--- NOTE | 2017-09-21 13:56 | NUR ---
CONTINUE TO FOLLOW, MET WITH PT AND SPOKE WITH BOTH PT AND S/O DWAINE OVER SPEAKER PHONE. PT AGREEABLE TO COMPLETE DPOA AND ONLY WANTED DWAINE HIS AGENT. NOTARIZED FORM AND GAVE PT COPIES, COPY TO CHART. UPDATED BOTH ON POC. WILL FOLLOW
--- NOTE | 2017-09-21 16:56 | NUR ---
WOUND NURSE: PATIENT REMAINS WITH A STABLE BLACKENED ESCHAR ON THE RIGHT 5TH MET AND WHICH IS RELATIVELY UNCHANGED SINCE LAST SEEN BY THIS NURSE A WEEK AGO. THERE IS NO DRAINAGE NOTED. AGAIN SWABBED WITH BETADINE SWAB, THEN WRAPPED WITH KERLEX ROLL GAUZE AND SECURED WITH TAP. THIS WAS TOLERATED FAIR BY THE PATIENT HE COMPLAINED THAT MOVING HIS LEG TO ACCESS THE WOUND CAUSED PAIN IN HIS BACK.
[2017-09-21 17:13] LABS: % SATURATION 71 % (20-39); IRON 120 ug/dL (50-175)
--- NOTE | 2017-09-21 17:40 | NUR ---
periods of confusion, easily redirected and attempts at reorientation. pt became restless this afternoon while sitting in chair all morning and most of afternoon and was encouraged to lay in bed. pt slept for a few hours. pt now sitting on bedside eating dinner, refuses to get into chair or into bed. pt in view of nurse. pt appears comfortable currently.
[2017-09-22] VITALS (33 sets, daily range): BP systolic 92–169; BP diastolic 47–94
[2017-09-22 00:16] LABS: MCH 29.7 pg (26.0-34.0); MCHC 31.3 g/dL (28.0-37.0); MPV 9.9 fl. (7.2-11.1); RBC 1.46 mil/uL (4.50-6.00); RDW-CV 18.8 % (10.5-14.5)
[2017-09-22 00:21] LABS: HEMATOCRIT 13.8 % (42.0-52.0); HEMOGLOBIN 4.3 gm/dL (14.0-18.0)
[2017-09-22 00:36] LABS: ALBUMIN 1.8 g/dL (3.4-5.0); ALKALINE PHOSPHATASE 170 U/L (46-116); ANION GAP 13 mmol/L (7-16); BUN 49 mg/dL (7-18); CALCIUM 7.4 mg/dL (8.5-10.1); CHLORIDE 113 mmol/L (98-107); CO2 20 mmol/L (21-32); CREATININE 2.5 mg/dL (0.6-1.3); GLUCOSE 239 mg/dL (70-99); POTASSIUM 5.1 mmol/L (3.5-5.1); SGOT 78 U/L (15-37); SGPT 54 U/L (30-65); SODIUM 146 mmol/L (136-145); TOTAL BILIRUBIN 0.5 mg/dL (<0.1-1.0); TROPONIN-I LEVEL 0.37 ng/mL (<0.06)
[2017-09-22 00:37] LABS: NT-PRO BRAIN NAT PEPTIDE > 35000 pg/mL (<300)
[2017-09-22 00:54] LABS: PHOSPHORUS* 6.3 mg/dL (2.5-4.9)
[2017-09-22 01:52] LABS: INR 1.6; PROTIME 15.7 Seconds (9.20-11.50)
[2017-09-22 01:55] LABS: BE -11.6 mmol/L (-2 to +3); HCO3 15.5 mmol/L (22.0-26.0); PCO2 41.6 mmHg (35.0-45.0)
[2017-09-22 01:59] LABS: PO2 376.2 mmHg (75.0-100.0); pH 7.189 (7.340-7.450)
--- NOTE | 2017-09-22 04:44 | NUR ---
AUSTIN PAUL CALLED AT APPROX 2130 AFTER PT WAS NONRESPONSIVE. CPR STARTED AND MONITOR PLACED. CODE TEAM ARRIVED AND DR PANG TOOK OVER CARES. PT TRANSFERED TO ICU.
[2017-09-22 06:55] LABS: MCH 30.5 pg (26.0-34.0); MCHC 32.9 g/dL (28.0-37.0); MCV 92.6 fL (80.0-100.0); MPV 10.1 fl. (7.2-11.1); PLATELET COUNT* 133 thou/uL (150-400); RDW-CV 16.6 % (10.5-14.5); WBC 19.3 thou/uL (4.0-11.0)
--- NOTE | 2017-09-22 06:56 | NUR ---
PT. ADMITTED TO ROOM 3 TRANSFER FROM [facility] AFTER CODE BLUE. PT. INTUBATED DURING CODE. PT. APPARENTLY WENT ASYSTOLE, EPI AND BICARB GIVEN, PULSE RETURNED. PROPOFOL ORDERED FOR SEDATION. PUPILS 5/SLUGGISH, PT. DID NOT FOLLOW COMMANDS. CODE ICE INITIATED AT 0015, PT. REACHED 93 DEGREES AT 0100. CORE TEMP WAS 95 DEGREES BEFORE CODE ICE STARTED. NO URINE OUTPUT THIS SHIFT. AFIB, ADEQUATE BP'S. PT. REMAINS COOL AT THIS TIME, WILL CONTINUE TO MONITOR.
[2017-09-22 06:57] LABS: HEMATOCRIT 17.6 % (42.0-52.0); HEMOGLOBIN 5.8 gm/dL (14.0-18.0)
[2017-09-22 07:18] LABS: INR 1.6; PROTIME 15.9 Seconds (9.20-11.50)
[2017-09-22 07:22] LABS: ANION GAP 14 mmol/L (7-16); BUN 50 mg/dL (7-18); CALCIUM 7.5 mg/dL (8.5-10.1); CHLORIDE 112 mmol/L (98-107); CO2 20 mmol/L (21-32); CREATININE 2.5 mg/dL (0.6-1.3); GLUCOSE 193 mg/dL (70-99); NT-PRO BRAIN NAT PEPTIDE > 35000 pg/mL (<300); PHOSPHORUS* 5.7 mg/dL (2.5-4.9); POTASSIUM 4.8 mmol/L (3.5-5.1); SODIUM 146 mmol/L (136-145)
[2017-09-22 07:58] LABS: BASOPHILS 0.4 %; EOSINOPHILS 0.1 %; LYMPHOCYTES 6.7 %; MONOCYTES 10.4 %; NUCLEATED RBCS 1 /100WBC; POLYS 82.4 %
[2017-09-22 07:59] LABS: ABSOLUTE BASOPHILS 0.1 thou/uL (0.0-0.2); ABSOLUTE LYMPHOCYTES 1.3 thou/uL (0.8-5.3)
[2017-09-22 08:00] LABS: ABSOLUTE NEUTROPHILS 15.9 thou/uL (1.6-8.1)
--- NOTE | 2017-09-22 10:30 | NUR ---
PT TRANSFERRED TO ICU LAST NIGHT, CODE ICE, ON THE VENT. NO FAMILY HERE AT THIS TIME BUT SIGNIFICANT OTHER HAS CALLED AND IS AWARE OF EVENTS OF THE NIGHT, PER NURSING. WE ONLY HAVE THE PHONE NUMBER FOR SIGNIFICANT OTHER, NO OTHER FAMILY MEMBERS. NURSING WILL SEE IF THEY CAN GET ADDITIONAL CONTACT INFORMATION FOR ADDITIONAL FAMILY MEMBERS OR FRIENDS.
[2017-09-22 11:30] LABS: BE -4.4 mmol/L (-2 to +3); HCO3 22.1 mmol/L (22.0-26.0)
[2017-09-22 11:31] LABS: PO2 135.9 mmHg (75.0-100.0); pH 7.281 (7.340-7.450)
--- NOTE | 2017-09-22 13:28 | NUR ---
ASSUMED CARE THIS AM pATIENT REMAINS ON VENT. CORE TEMP 90.1. PT HAS RECIEVED 3 UNITS PRBCS. tOLERATED WELL. REMAINS IN AFIB. OBTAINED URINE AQND SPUTUM ORDERED. RT LEG WOUNDS PAINTED AND REWRAPPED AFTER VASCULAR PA FINISHED WITH ASSESSMENT. NO SHIVERS OR TREMORS NOTED.
[2017-09-22 15:01] LABS: HEMATOCRIT 20.9 % (42.0-52.0); HEMOGLOBIN 7.2 gm/dL (14.0-18.0)
--- NOTE | 2017-09-22 17:12 | NUR ---
PATIENT REMAINS ON VENT SEDATED TEMP 91.4. DR DAVIS IN TO SEE PT DCD DIG AND METOPROLOL. HGB 7.4, DR LANGLEY WILL SEE PT IN AM, PT PROGRESSING SLOWLY.
[2017-09-22 18:38] LABS: HEMATOCRIT 21.9 % (42.0-52.0); HEMOGLOBIN 7.6 gm/dL (14.0-18.0); MCH 31.4 pg (26.0-34.0); MCHC 34.6 g/dL (28.0-37.0); MCV 90.6 fL (80.0-100.0); NUCLEATED RBCS 1 /100WBC; PLATELET COUNT* 116 thou/uL (150-400); RBC 2.42 mil/uL (4.50-6.00); RDW-CV 15.7 % (10.5-14.5); WBC 15.7 thou/uL (4.0-11.0)
[2017-09-22 19:11] LABS: ABSOLUTE BASOPHILS 0.1 thou/uL (0.0-0.2); ABSOLUTE LYMPHOCYTES 0.9 thou/uL (0.8-5.3); ABSOLUTE MONOCYTES 1.5 thou/uL (0.0-1.2); ABSOLUTE NEUTROPHILS 13.2 thou/uL (1.6-8.1); BASOPHILS 0.4 %; EOSINOPHILS 0.2 %; LYMPHOCYTES 5.9 %; MONOCYTES 9.4 %; POLYS 84.1 %
[2017-09-22 19:22] LABS: ANION GAP 10 mmol/L (7-16); BUN 53 mg/dL (7-18); CALCIUM 7.6 mg/dL (8.5-10.1); CHLORIDE 113 mmol/L (98-107); CK-MB MASS 41.2 ng/mL (<0.5-3.6); CO2 25 mmol/L (21-32); CREATININE 2.6 mg/dL (0.6-1.3); GLUCOSE 168 mg/dL (70-99); MAGNESIUM 2.1 mg/dL (1.8-2.4); NT-PRO BRAIN NAT PEPTIDE > 35000 pg/mL (<300); PHOSPHORUS* 5.3 mg/dL (2.5-4.9); POTASSIUM 4.7 mmol/L (3.5-5.1); SODIUM 148 mmol/L (136-145)
[2017-09-22 19:31] LABS: TROPONIN-I LEVEL 12.42 ng/mL (<0.06)
[2017-09-22 19:36] LABS: INR 1.5; PROTIME 14.5 Seconds (9.20-11.50)
[2017-09-22 19:37] LABS: APTT 33.7 Seconds (25.0-31.3)
--- NOTE | 2017-09-22 22:06 | NUR ---
RECIEVED REPORT AND ASSUMED CARE OF PT AT 0. PT INTUBATED AND SEDATED ON VENTILATOR. ON CODE ICE PROTOCOL POST CARDIAC ARREST. CALLED NEPHROLOGY AND REPORTED LAB VALUES AND LOW URINE OUTPUT. RECIEVED ORDERS TO CHANGE IV FLUIDS. CALLED PRIMARY AND REPORTED H&H RESULTS POST TRANSFUSIO. RECIEVED ORDER TO TRANSFUSE ONE UNIT OF PACKED RED CELLS. TRANSFUSION STARTED AT 2114.
--- NOTE | 2017-09-22 23:53 | NUR ---
TRANFUSION COMPLETED AT 2315.
[2017-09-23] VITALS (42 sets, daily range): BP systolic 119–1702; BP diastolic 46–89
--- NOTE | 2017-09-23 00:15 | NUR ---
REWARMING PROCESS STARTED.
[2017-09-23 00:39] LABS: ABSOLUTE BASOPHILS 0.2 thou/uL (0.0-0.2); ABSOLUTE LYMPHOCYTES 0.8 thou/uL (0.8-5.3); ABSOLUTE MONOCYTES 0.9 thou/uL (0.0-1.2); ABSOLUTE NEUTROPHILS 12.1 thou/uL (1.6-8.1); BASOPHILS 1.1 %; HEMATOCRIT 24.3 % (42.0-52.0); HEMOGLOBIN 8.3 gm/dL (14.0-18.0); MCH 30.6 pg (26.0-34.0); MCHC 34.2 g/dL (28.0-37.0); MCV 89.4 fL (80.0-100.0); MONOCYTES 6.3 %; NUCLEATED RBCS 1 /100WBC; PLATELET COUNT* 104 thou/uL (150-400); POLYS 86.6 %; RBC 2.72 mil/uL (4.50-6.00); RDW-CV 15.5 % (10.5-14.5)
[2017-09-23 00:58] LABS: INR 1.5; PROTIME 14.1 Seconds (9.20-11.50)
[2017-09-23 01:05] LABS: ANION GAP 12 mmol/L (7-16); BUN 52 mg/dL (7-18); CALCIUM 7.7 mg/dL (8.5-10.1); CHLORIDE 111 mmol/L (98-107); CO2 23 mmol/L (21-32); CREATININE 2.6 mg/dL (0.6-1.3); GLUCOSE 155 mg/dL (70-99); MAGNESIUM 1.9 mg/dL (1.8-2.4); NT-PRO BRAIN NAT PEPTIDE > 35000 pg/mL (<300); PHOSPHORUS* 5.2 mg/dL (2.5-4.9); POTASSIUM 4.2 mmol/L (3.5-5.1); SODIUM 146 mmol/L (136-145)
[2017-09-23 05:48] LABS: HCO3 19.2 mmol/L (22.0-26.0); pH 7.396 (7.340-7.450)
[2017-09-23 05:52] LABS: PO2 161.3 mmHg (75.0-100.0)
[2017-09-23 06:50] LABS: ABSOLUTE BASOPHILS 0.1 thou/uL (0.0-0.2); ABSOLUTE LYMPHOCYTES 1.1 thou/uL (0.8-5.3); ABSOLUTE MONOCYTES 0.8 thou/uL (0.0-1.2); ABSOLUTE NEUTROPHILS 12.8 thou/uL (1.6-8.1); BASOPHILS 0.4 %; EOSINOPHILS 0.1 %; HEMATOCRIT 23.8 % (42.0-52.0); LYMPHOCYTES 7.3 %; MCH 29.9 pg (26.0-34.0); MCHC 33.7 g/dL (28.0-37.0); MCV 88.8 fL (80.0-100.0); MONOCYTES 5.7 %; MPV 10.2 fl. (7.2-11.1); NUCLEATED RBCS 1 /100WBC; PLATELET COUNT* 110 thou/uL (150-400); POLYS 86.5 %; RBC 2.68 mil/uL (4.50-6.00); RDW-CV 15.6 % (10.5-14.5); WBC 14.8 thou/uL (4.0-11.0)
[2017-09-23 07:06] LABS: ALBUMIN 1.9 g/dL (3.4-5.0); DIRECT BILIRUBIN 0.4 mg/dL (<0.1-0.3); TOTAL BILIRUBIN 0.8 mg/dL (<0.1-1.0); TOTAL PROTEIN 4.9 g/dL (6.4-8.2)
[2017-09-23 07:09] LABS: ANION GAP 12 mmol/L (7-16); BUN 54 mg/dL (7-18); CALCIUM 7.5 mg/dL (8.5-10.1); CHLORIDE 111 mmol/L (98-107); CO2 23 mmol/L (21-32); CREATININE 2.8 mg/dL (0.6-1.3); GLUCOSE 172 mg/dL (70-99); MAGNESIUM 1.9 mg/dL (1.8-2.4); NT-PRO BRAIN NAT PEPTIDE > 35000 pg/mL (<300); PHOSPHORUS* 5.3 mg/dL (2.5-4.9); POTASSIUM 4.3 mmol/L (3.5-5.1); SODIUM 146 mmol/L (136-145)
[2017-09-23 07:15] LABS: APTT 33.7 Seconds (25.0-31.3); INR 1.4; PROTIME 13.4 Seconds (9.20-11.50)
--- NOTE | 2017-09-23 09:07 | NUR ---
5632 ASSUMED CARE OF PATIENT. SEE DOCUMENTED ASSESSMENT. PT IS POST CODE AND REWARMING. DR CHEN TO SEEE PATIENT.
--- NOTE | 2017-09-23 09:08 | NUR ---
DR BALLARD TO SEE PATIENT. NO NEW ORDERS
--- NOTE | 2017-09-23 09:29 | NUR ---
CHEST FILM DONE AND SEEN BY DR LOAIZA AND DR CHEN. ORDERS NOTED. SIMPSON CATHETER IRRIGATED WITH RETURN OF IRRIGANT
--- NOTE | 2017-09-23 09:35 | NUR ---
SEEN BY DR CASILLAS. LASIX GIVEN
--- NOTE | 2017-09-23 11:09 | NUR ---
SPOKE WITH DR HECK,RADIOLOGY, ABOUT CENTRAL LINE POSITION. DR HECK STATES LEFT IJ CATHETER IS IN CORRECT POSITION. PT TEMPERATURE WENT DOWN. NATHALY HUGGER PLACED.
--- NOTE | 2017-09-23 11:57 | NUR ---
DR BAUMANN HERE TO SEE PATIENT
--- NOTE | 2017-09-23 13:20 | NUR ---
1230 DR LANGLEY HERE TO SEE PATIENT AND UPDATED ON PT STATUS
--- NOTE | 2017-09-23 14:26 | NUR ---
REWARM GOAL OF 97.7 DEGREES MET
[2017-09-23 15:30] LABS: BE -4.7 mmol/L (-2 to +3); PCO2 35.6 mmHg (35.0-45.0); PO2 114.8 mmHg (75.0-100.0); pH 7.368 (7.340-7.450)
--- NOTE | 2017-09-23 17:26 | NUR ---
PATIENT MAKING PROGRESS TOWARDS SOME GOALS. REWARMED THIS AFTERNOON TO GOAL. ABLE TO WEAN SEDATION SIGNIFICANTLY. NOT BRADYCARDIC. WOUND CARE AND PULSES CHARTED. REMAINS OLIGURIC IN SPITE OF LASIX. SIGNIFICANT OTHER IS ALSO DPOA AND HAS CALLED [facility] TODAY AND BEEN UPDATE ON PT STATUS
--- NOTE | 2017-09-23 19:45 | NUR ---
recieved report and assumed care of pt at 1900. pt intubated and sedated on ventilator post cadiac arrest. pt rewarmed at 1430. pt moving hands and feet spontaneously. pt no tfollowing commands.
[2017-09-24] VITALS (15 sets, daily range): BP systolic 116–179; BP diastolic 38–73
[2017-09-24 04:34] LABS: HEMATOCRIT 23.3 % (42.0-52.0); HEMOGLOBIN 7.8 gm/dL (14.0-18.0); MCH 29.5 pg (26.0-34.0); MCHC 33.3 g/dL (28.0-37.0); MCV 88.7 fL (80.0-100.0); MPV 10.5 fl. (7.2-11.1); RBC 2.63 mil/uL (4.50-6.00); RDW-CV 15.7 % (10.5-14.5); WBC 23.1 thou/uL (4.0-11.0)
[2017-09-24 05:13] LABS: ALBUMIN 1.8 g/dL (3.4-5.0); CALCIUM 7.4 mg/dL (8.5-10.1); CREATININE 3.3 mg/dL (0.6-1.3); TOTAL BILIRUBIN 0.7 mg/dL (<0.1-1.0); TOTAL PROTEIN 4.9 g/dL (6.4-8.2)
--- NOTE | 2017-09-24 08:30 | NUR ---
PROPOFOL HAS BEEN TURNED OFF FOR SEDATION VAC.
--- NOTE | 2017-09-24 09:00 | NUR ---
DR IGLESIAS SPOKE WITH PT'S SO DWAINE PAEZ. EXPLAINED THE NEED FOR DIALYSIS AND THAT IT NEEDED TO START TODAY. DR ARREAGA- VASCULAR PAGED AND SAID THAT HE WOULD BE HERE BETWEEN [id number]
--- NOTE | 2017-09-24 11:15 | NUR ---
DR ARREAGA AT BEDSIDE TO [facility]. TIME OUT WAS DONE.DIALYSIS CATH WAS PLACED IN THE R JUGULAR. CXR COMFIRMED
--- NOTE | 2017-09-24 14:56 | NUR ---
TAKED TO DR IGLESIAS RE: NUTRITION FOR THE PT. STATED THEY WILL THINK ABOUT THAT AKHIL. CON'T D5
--- NOTE | 2017-09-24 16:21 | NUR ---
PLACED PT BACK ON PROPOFOL FOR AGGITATION. PT HAS BEEN OFF SINCE 0800THIS AM. STARTED BACK ON THE CURRENT SETTINGS
--- NOTE | 2017-09-24 16:37 | NUR ---
SOME PROGRESSION TOWARDS GOALS. ASSESSMENT AND VS OBTAINED, SEE CHARTING. MEDICAL APPARATUS MODEL MAKER ON AND TRACING AF. PT REMAINS ON VENT WITH ORDERED SETTINGS. TEMP DIALYSIS WAS PLACED IN THE R JUGULAR AND DIALYSIS IS ORDERED FOR TODAY.PT HAD 45ML OF URINE OUT FOR THE DAY. PT HAD A SEDATION VACATIOMTODAY AND DID FAIRLY WELL. TALKED TO THE PT SKrissy ISIDRO SEVERAL TIMES TODAY RE: PT'S CONDITION AND SHE STATED SHE DIDN'T KNOW WHAT TO DO. I EXPLAINED TO HER TO LISTEN TO WHAT THE DR'S SAY AND THAT SHOULD HELP HER IN ANY DECISION MAKING. DID TELL HER THAT HE WAS RESPONDING TO SOME QUESTIONS WHEN ASKED.
[2017-09-25] VITALS (15 sets, daily range): BP systolic 128–203; BP diastolic 45–105
--- NOTE | 2017-09-25 04:36 | NUR ---
PATIENT HAD A RUN OF VENTRICULAR MIKE RHYTHM. HR IN THE 30'S, 02 80'S RT WAS IN ROOM. PT TV RETURN DECREASED. STARTED MANUALLY BAGGING PT O2 SAT INCREASED, RETURNED TO HIS NORAL RHYTHM. PERFORMED EKG, READ RESULTS TO CARDIOLOGY. CALLED PULMONARY DR. TIERNEY ORDERS RECIEVED TO DO A.M ABG. WILL CONTINUE TO MONITOR CLOSELY.
[2017-09-25 06:30] LABS: HEMOGLOBIN 8.1 gm/dL (14.0-18.0); RDW-CV 16.1 % (10.5-14.5)
[2017-09-25 06:32] LABS: HEMATOCRIT 25.1 % (42.0-52.0); MCH 29.4 pg (26.0-34.0); MCHC 32.2 g/dL (28.0-37.0); MCV 91.1 fL (80.0-100.0); MPV 10.2 fl. (7.2-11.1); RBC 2.76 mil/uL (4.50-6.00); WBC 22.5 thou/uL (4.0-11.0)
[2017-09-25 06:45] LABS: ALBUMIN 1.8 g/dL (3.4-5.0); CALCIUM 7.1 mg/dL (8.5-10.1); CREATININE 3.6 mg/dL (0.6-1.3); POTASSIUM 5.2 mmol/L (3.5-5.1); TOTAL BILIRUBIN 0.9 mg/dL (<0.1-1.0); TOTAL PROTEIN 5.1 g/dL (6.4-8.2)
[2017-09-25 08:20] LABS: BE -7.4 mmol/L (-2 to +3); HCO3 17.8 mmol/L (22.0-26.0); PCO2 34.6 mmHg (35.0-45.0); PO2 109.1 mmHg (75.0-100.0); pH 7.328 (7.340-7.450)
--- NOTE | 2017-09-25 10:13 | OP ---
[facility] [address] [place] [address] OPERATIVE REPORT Name: IMTIAZ RBISCOE Room: [address] IN [facility]#: [id number] Admission: 09/12/17 Attend Phys: Vane Kovacs Discharge: Date of : 41 Report #: [id number] THIS REPORT FOR: //name// CC: [facility] MD DANIELLE Aguilar DATE OF SERVICE: 09/24/2017 PREOPERATIVE DIAGNOSIS: Acute kidney injury. POSTOPERATIVE DIAGNOSIS: Acute kidney injury. PROCEDURE: 1. Ultrasound-guided access to right internal jugular vein. 2. Placement of temporary dialysis catheter. SURGEON: Robin Diaz DO. SENIOR PHP DEVELOPER: None. ANESTHESIA: Local. The patient was already sedated in the ICU. ESTIMATED BLOOD LOSS: 25 mL. FLUIDS: None. URINE OUTPUT: None. SPECIMENS: None. IMPLANTS: A 15-cm 11-Kiswahili temporary dialysis catheter in the right IJ. CLINICAL HISTORY: The patient is a 72-year-old man who is status post code ice for pulseless electrical activity arrest. He has known peripheral vascular disease and acute kidney injury. Nephrology recommends initiating dialysis. Temporary line was requested. DESCRIPTION OF PROCEDURE: After informed consent was obtained, the patient was already in the ICU, intubated and sedated. The right neck was prepped and draped in the usual sterile fashion. A timeout was performed identifying correct patient and procedure. Next, using ultrasound guidance, the right internal jugular vein was accessed with an 18 gauge needle. This image was preserved. Using Seldinger technique, a wire was passed easily without resistance. A small skin incision was made in the right neck. The tract was then dilated and then the catheter was then passed over the [place] [address] OPERATIVE REPORT Name: IMTIAZ BRISCOE Room: [address] IN [facility]#: [id number] Admission: 09/12/17 Attend Phys: Vane Kovacs Discharge: Date of : 41 Report #: [id number] IJ. The wire was removed. Good blood return. Both ports were flushed with saline. They aspirated and flushed quite easily. Both ports were capped. The catheter was then secured to the right neck with 3-0 silk suture. Sterile dressing was applied. All counts were reported as correct. He tolerated it well at the bedside. X-ray is pending, but the catheter may be used immediately for dialysis needs. <ELECTRONICALLY SIGNED> By: Robin Diaz DO 09/25/17 1013 1132 [id number] Diaz DO /nt
--- NOTE | 2017-09-25 11:11 | NUR ---
PT REMAINS ON VENT (PER CODE BLUE SHEET WAS INTUBATED 09/21 AT 2147). PT HAD TEMPORARY DIALYSIS LINE PLACED YESTERDAY. DRS HAVE TALKED WITH SIGNIFICANT OTHER/DPOA OVER THE PHONE TO DISCUSS PLAN OF CARE. SHE SAID LAST WEEK SHE HAD NO WAY TO GET TO THE HOSPITAL TO VISIT.
--- NOTE | 2017-09-25 14:45 | NUR ---
PATIENT ALERT FOLLOWS COMMANDS WITH LIMITATIONS. TURNED Q2 HOURS. TOLERATES WELL.
--- NOTE | 2017-09-25 18:00 | NUR ---
PATIENT REMAINS ON VENT OFF OF SEDATION. FOLLOWS COMMANDS DIALYSIS TO BE DONE THIS EVENING. PROGRESSING TOWARD GOALS
[2017-09-25 21:07] LABS: HEPATITIS B SURFACE AG Negative (Negative)
[2017-09-26] VITALS (25 sets, daily range): BP systolic 111–177; BP diastolic 43–87
[2017-09-26 04:02] LABS: HEMATOCRIT 24.9 % (42.0-52.0); HEMOGLOBIN 8.4 gm/dL (14.0-18.0); MCH 30.3 pg (26.0-34.0); MCHC 33.6 g/dL (28.0-37.0); MPV 10.1 fl. (7.2-11.1); NUCLEATED RBCS 3 /100WBC; PLATELET COUNT* 119 thou/uL (150-400); RBC 2.77 mil/uL (4.50-6.00); RDW-CV 16.2 % (10.5-14.5); WBC 22.7 thou/uL (4.0-11.0)
[2017-09-26 04:30] LABS: PREALBUMIN 16.1 mg/dL (18.0-35.7)
[2017-09-26 04:34] LABS: ALBUMIN 1.8 g/dL (3.4-5.0); CALCIUM 7.1 mg/dL (8.5-10.1); CREATININE 3.1 mg/dL (0.6-1.3); MAGNESIUM 1.8 mg/dL (1.8-2.4); POTASSIUM 4.5 mmol/L (3.5-5.1); TOTAL BILIRUBIN 0.9 mg/dL (<0.1-1.0); TOTAL PROTEIN 5.1 g/dL (6.4-8.2)
[2017-09-26 05:43] LABS: ABSOLUTE EOSINOPHILS 0.2 thou/uL (0.0-0.7); ABSOLUTE LYMPHOCYTES 0.7 thou/uL (0.8-5.3); ABSOLUTE MONOCYTES 0.5 thou/uL (0.0-1.2); ABSOLUTE NEUTROPHILS 21.3 thou/uL (1.6-8.1); HYPOCHROMASIA 1+; MYELOCYTES 2 %; PLATELET ESTIMATE DECREASED; POLYCHROMASIA 1+
[2017-09-26 05:44] LABS: ANISOCYTOSIS 1+; OVALOCYTES 1+; POIKILOCYTOSIS 1+; SCHISTOCYTES Occasional
--- NOTE | 2017-09-26 06:17 | NUR ---
PT PROGRESSING TOWARD GOALS. NO SEDATION GIVEN THIS SHIFT; PT IS ALERT, NODS/SHAKES HEAD IN RESPONSE TO YES/NO QUESTIONS AND FOLLOWS COMMANDS. VSS. TUBE FEED RESIDUALS HAVE REMAINED 50ML OR LESS, RATE TITRATED TO 25ML/HR WITH GOAL OF 50 ML/HR. FREE WATER BOLUS OF 200ML GIVEN Q6 ORDERED. DRESSING TO RIGHT FOOT REMAINS C/D/I. PT DIALYZED LAST NIGHT, FUEL RETROFITTING TECHNICIAN STATED 2L FLUID WAS REMOVED. PT TOLERATED WELL THOUGH HE HAD ELEVATED BP DURING DIALYSIS WHICH RETURNED TO BASELINE SHORTLY AFTER DIALYSIS WAS COMPLETE. PT IS VERY EASILY AGGITATED WITH MINIMAL PHYSICAL STIMULI, BECOMING TACHYPNEIC AND THRASHING DURING SMALL TASKS SUCH ORAL CARE. FOR THIS REASON COMPLETE BED BATH WAS NOT GIVEN TONIGHT SEDATION IS BEING HELD AT THIS TIME FOR T-TUBE TRIAL SCHEDULED FOR 0800. PT HAS BEEN TURNED Q2HR THROUGHOUT THE SHIFT.
--- NOTE | 2017-09-26 08:10 | NUR ---
0730 ASSUMED CARE OF PATIENT.SEE DOCUMENTED ASESSMENT. PT IS ON VENT TRIAL WITH TUBE FEEDING ON HOLD. NORI HERE AND WILL DC CVP. FARHAD SAW PT, HE WILL DIALYZE
[2017-09-26 08:21] LABS: BE -0.4 mmol/L (-2 to +3); HCO3 23.8 mmol/L (22.0-26.0); PCO2 37.5 mmHg (35.0-45.0); PO2 129.8 mmHg (75.0-100.0); pH 7.421 (7.340-7.450)
--- NOTE | 2017-09-26 13:55 | NUR ---
PT DID WELL ON VENT TRIAL AND IS DIALYZIBG. PLAN IS TO EXTUBATE ONE HOUR AFTER DIALYSIS. TUBEE FEEDING RESUMED AFTER TRIAL
--- NOTE | 2017-09-26 15:29 | NUR ---
1500 DIALYSIS COMPLETE. PT VERY AWAKE AND INFORMED OF PLAN TO EXTUBATE
--- NOTE | 2017-09-26 16:19 | NUR ---
EXTUBATED TO 4LPM NASAL CANNULA. OG REMOVED AND RESTRAINTS OFF. PT STATES HE NEEDS TO HAVE BOWEL MOVEMENT BUT HAS ALREADY DONE THAT. ASKED TO HAVE TV ON. VOICE LCEAR. ORIENTED TO SELF
--- NOTE | 2017-09-26 17:49 | NUR ---
HAD BECOME EXTREMELY COMBATIVE AND YELLING "THIS IS NOT [facility]" AND CALLING FOR THE "DRIER HELPER." UNABLE TO REORIENT. ABLE TO GET SIDERAIL DOWN. GIVEN IM HALDOL PATIENT WORKED DIALYSIS DRESSING LOOSE.INCONTINENT OF STOOL. MESSAGE SENT TO DR DELUCA
--- NOTE | 2017-09-26 17:54 | NUR ---
PATIENT HAS MADE PROGRESS TOWARDS GOALS BY DIALYZING AND BEING EXTUBATED. WAS COMBATIVE AND AGRESSIVE POST EXTUBATION. MEDICATED WITH HALDOL AND CURRENTLY NOT PULLING ANYTHING OFF. INTAKE AND OUTPUT CHARTED. HYPERTENSIVE WHEN AGITATED. DAUGHTER VISITED AND SO CALLED
[2017-09-26 17:59] LABS: BE -2.4 mmol/L (-2 to +3); HCO3 21.6 mmol/L (22.0-26.0); PCO2 34.5 mmHg (35.0-45.0); PO2 70.7 mmHg (75.0-100.0); pH 7.415 (7.340-7.450)
--- NOTE | 2017-09-26 18:05 | NUR ---
ABG'S CALLED TO DR CHEN. DR DELUCA TO SEEE PATIENT AND ORDERS RECEIVED
[2017-09-27] VITALS (11 sets, daily range): BP systolic 103–166; BP diastolic 40–86
[2017-09-27 04:57] LABS: ABSOLUTE BASOPHILS 0.2 thou/uL (0.0-0.2); ABSOLUTE LYMPHOCYTES 1.1 thou/uL (0.8-5.3); ABSOLUTE MONOCYTES 0.8 thou/uL (0.0-1.2); ABSOLUTE NEUTROPHILS 20.2 thou/uL (1.6-8.1); BASOPHILS 1.1 %; EOSINOPHILS 0.2 %; HEMATOCRIT 26.1 % (42.0-52.0); HEMOGLOBIN 8.7 gm/dL (14.0-18.0); LYMPHOCYTES 4.8 %; MCH 29.9 pg (26.0-34.0); MCHC 33.2 g/dL (28.0-37.0); MCV 90.1 fL (80.0-100.0); MONOCYTES 3.7 %; MPV 10.5 fl. (7.2-11.1); NUCLEATED RBCS 1 /100WBC; PLATELET COUNT* 125 thou/uL (150-400); POLYS 90.2 %; RDW-CV 16.6 % (10.5-14.5); WBC 22.4 thou/uL (4.0-11.0)
[2017-09-27 05:02] LABS: ALBUMIN 1.9 g/dL (3.4-5.0); CALCIUM 7.6 mg/dL (8.5-10.1); CREATININE 2.9 mg/dL (0.6-1.3); MAGNESIUM 1.9 mg/dL (1.8-2.4); POTASSIUM 4.3 mmol/L (3.5-5.1); TOTAL PROTEIN 5.3 g/dL (6.4-8.2)
[2017-09-27 05:13] LABS: PREALBUMIN 16.6 mg/dL (18.0-35.7)
--- NOTE | 2017-09-27 06:44 | NUR ---
PROGRESSING TOWARD GOALS. EARLY IN THE SHIFT PT WAS AGITATED, YELLING AND CURSING AT STAFF. PRN HALDOL GIVEN WITH POSITIVE RESULTS. PT REPORTED LEG PAIN X2 BUT COULD NOT RATE, PRN FENTANYL GIVEN WITH RELIEF OF SYMPTOMS. PT SLEPT MUCH OF THE NIGHT, EASILY ROUSABLE AND BEHAVED MORE APPROPRIATELY. VSS. O2 SAT HAS REMAINED >95% TONIGHT. PT HAS BEEN TURNED Q2HR THROUGHOUT THE SHIFT.
--- NOTE | 2017-09-27 07:52 | NUR ---
ASSUMED CARE OF PATIENT AFTER RECEIVING BEDSIDE REPORT. ASSESSMENT COMPLETED, VSS. PATIENT RESTING COMFORTABLY IN BED. ACTIVE ROM ENCOURAGED IN BED. PT/OT/ST ORDERED FOR INCREASED ACTIVITY. PATIENT ORIENTED TO SELF ONLY. PATIENT CALM AND COOPERATIVE. MEDICAL SOCIAL WORKER IN PLACE, AFIB NOTED WITH ECOTOPY. BED ALARM ON. CALL LIGHT WITHIN REACH, USE REINFORCED. WILL CONTINUE TO MONITOR.
--- NOTE | 2017-09-27 16:23 | EKG ---
[place] [address] ELECTROCARDIOGRAM REPORT Name: IMTIAZ BRISCOE Room: [address] ADM IN .R.#: [id number] Admission: 09/12/17 Attend Phys: Vane Kovacs Discharge: Date of : 41 Report #: [id number] THIS REPORT FOR: //name// [facility] Test Date: 2017-09-27 Test Time: 13:22:07 Pat Name: IMTIAZ DEANN Department: Room: [address] Gender: M Zoning Engineer: : [id number] Requested By: Donaldo Varela Order Number: [id number] MD: Gabe Maciel Measurements Intervals [place] Rate: 82 P: [place]: QRS: -59 QRSD: 114 T: 133 QT: 376 QTc: 439 Interpretive Statements Atrial fibrillation Borderline IVCD with LAD Inferior infarct, old Consider anterior infarct Lateral leads are also involved Compared to ECG 09/25/2017 04:08:50 No significant changes Electronically Signed On 09-27-2017 16:23:37 SYSTEMS MANAGEMENT CONSULTANT by Gabe aMciel [email or web address] <ELECTRONICALLY SIGNED> By: Gabe Maciel MD, [facility] 09/27/17 1623 1322 1322 Gabe Maciel MD, [facility] /EPI
--- NOTE | 2017-09-27 18:00 | NUR ---
PT C/O OF CHEST PAIN WITH INSPIRATION. EKG OBTAINED, NO CHANGE FROM PREVIOUS EKGS.
--- NOTE | 2017-09-27 18:15 | NUR ---
RECEIVED PT FROM ICU. ST SAW PT AND PT PLACED ON REGULAR DIET. PT REQUESTING SUGAR FOODS. PT YELLING OUT WHEN NEEDING RN. PT EDUCATED PLANT TECHNICAL SPECIALIST LIGHT.
--- NOTE | 2017-09-27 19:48 | NUR ---
DR CALLED ABOUT CHEST PAIN. ASKED FOR TROPONINS. NO ORDERS RECEIVED "CHEST PAIN SOUND PLEURITIC".
[2017-09-28] VITALS: BP 176/92
[2017-09-28 04:00] VITALS: BP 168/115
[2017-09-28 04:35] LABS: HCO3 23.9 mmol/L (22.0-26.0); PCO2 40.8 mmHg (35.0-45.0); PO2 60.7 mmHg (75.0-100.0); pH 7.386 (7.340-7.450)
[2017-09-28 05:32] LABS: ABSOLUTE BASOPHILS 0.1 thou/uL (0.0-0.2); ABSOLUTE LYMPHOCYTES 0.9 thou/uL (0.8-5.3); ABSOLUTE MONOCYTES 0.8 thou/uL (0.0-1.2); ABSOLUTE NEUTROPHILS 20.9 thou/uL (1.6-8.1); BASOPHILS 0.2 %; EOSINOPHILS 0.2 %; HEMATOCRIT 28.3 % (42.0-52.0); HEMOGLOBIN 9.4 gm/dL (14.0-18.0); LYMPHOCYTES 3.9 %; MCH 30.1 pg (26.0-34.0); MCHC 33.1 g/dL (28.0-37.0); MCV 90.8 fL (80.0-100.0); MONOCYTES 3.7 %; NUCLEATED RBCS 2 /100WBC; PLATELET COUNT* 139 thou/uL (150-400); RBC 3.11 mil/uL (4.50-6.00); RDW-CV 16.7 % (10.5-14.5); WBC 22.7 thou/uL (4.0-11.0)
[2017-09-28 05:55] LABS: PREALBUMIN 18.2 mg/dL (18.0-35.7)
[2017-09-28 06:16] LABS: ALBUMIN 2.2 g/dL (3.4-5.0); CALCIUM 8.1 mg/dL (8.5-10.1); TOTAL BILIRUBIN 1.2 mg/dL (<0.1-1.0); TOTAL PROTEIN 6.1 g/dL (6.4-8.2)
[2017-09-28 06:18] LABS: CREATININE 4.1 mg/dL (0.6-1.3)
[2017-09-28 08:00] VITALS: BP 149/72
[2017-09-28 08:45] VITALS: BP 149/72
--- NOTE | 2017-09-28 08:45 | NUR ---
ASSUMED PT. CARE AND RECEIVED REPORT AT 0730. PT RESTING IN BED, EYES CLOSED, BIPAP IN PLACE. PT. DOES NOT APPEAR AGITATED AT THIS TIME. FULL ASSESSMENT COMPLETED, REFER TO CHARTING. VSS, MONITOR ON TRACING AFIB. SIMPSON NOTED TO DD. RIGHT FOOT BOOT IN PLACE, WITH C/D/I DRESSING. FALL PRECUATIONS IN PLACE, WILL CONTINUE WITH PLAN OF CARE.
--- NOTE | 2017-09-28 09:09 | NUR ---
PT A/OX1-2, AFIB ON THE MONITOR, 5L NC AT START OF SHIFT, PT BECAME VERY AGGITATED AND YELLING HE CAN'T BREATH, PT RESP >20'S, O2'S 90-92%, VENTI MASK ATTEMPTED, RESP PLACED PT ON BIPAP, ORDERS REC PER KAJAL FOR STAT CXR AND ABG'S AND ORDERS FOR THE BIPAP, CP REPORTED AND TREATED WITH TROPONIN X1, DR RDZ AWARE AND ORDERED STAT VQ SCAN AND TROP, DR RDZ STATED VQ IS TO BE STAT AND DIALYSIS CAN BE AFTER, WHEN REPORTING UPDATE THAT VQ SCAN IS NOT POSSIBLE PER RADIOLOGY UNTIL 9AM DUE TO NO SUPPLY OF CONTRAST, DR ASTUDILLO RETURNED THE CALL AND PROVIDED NEW ODRES OF STAT LACTIC ACID, PULM TO BE NOTIFIED, AND DIALSIS TO BE COMPLETED. PT WAS ABLE TO REST AFTER BEING ON BI-PAP, PRIOR TO BIPAP PT WAS YELLING, PULLING/GRABBING AT THING. PROVIDED IN DAY SHIFT REPORT THAT PULM NEEDS TO BE NOTIFED STILL, AND OF CONVERSTAION WITH NEW ORDERS FORM DR ASTUDILLO AFTER RECEIVING ORDERS FROM DR RDZ. HOURLY ROUNDING IN PLACE, FALL PRECAUTIONS IN PLACE, HYDROLIZINE GIVEN X1 FOR >BP, MEDS/ASSESSMENT PER CHARTING, U-CALL PLACED DUE TO SCREENING POSITIVE ON SEPSIS SCREENING, NOTIFED DAY RN.
[2017-09-28 11:56] VITALS: BP 161/80
--- NOTE | 2017-09-28 15:42 | NUR ---
CONTINUE TO FOLLOW. PT'S S/O DWAINE HERE TO SEE PT WITH HER DTR. DWAINE WAS ABLE TO TALK WITH ID/VASCULAR AND NURSING TO GET UPDATE. PROVIDED SUPPORT AND ASSURED HER WOULD KEEP UPDATED
--- NOTE | 2017-09-28 17:16 | EKG ---
[place] [address] ELECTROCARDIOGRAM REPORT Name: IMTIAZ BRISCOE Room: [address] ADM IN [facility].#: [id number] Admission: 09/12/17 Attend Phys: Vane Kovacs Discharge: Date of : 41 Report #: [id number] THIS REPORT FOR: //name// [facility] Test Date: 2017-09-28 Test Time: 04:47:15 Pat Name: IMTIAZ DEANN Department: Room: [address] Gender: M Instructor Traffic Safety: CINDY : 1945 Requested By: Donaldo Varela Order Number: [id number] Rey MD: Derrek Shelton Measurements Intervals [place] Rate: 76 P: CO: QRS: -56 QRSD: 113 T: 157 QT: 385 QTc: 433 Interpretive Statements Atrial fibrillation LAD, consider left anterior fascicular block Anterior infarct, old Repol abnrm suggests ischemia, lateral leads Compared to ECG 09/27/2017 13:22:07 Early repolarization now present Possible ischemia now present Myocardial infarct finding still present Electronically Signed On 09-28-2017 17:16:37 BANK TELLER by Derrek Shelton [email or web address] <ELECTRONICALLY SIGNED> By: Derrek Shelton MD, FACC 09/28/17 1716 0447 0447 Derrek Shelton MD, FACC /EPI
[2017-09-28 20:15] VITALS: BP 153/59
--- NOTE | 2017-09-28 20:28 | NUR ---
THOROCENTISIS ORDERED THIS MORNING BY DR. ASTUDILLO, PT. TO GO DOWN AT 1030. HOWEVER, WE WERE UNABLE TO GET CONSENT FROM [facility] IN TIME FOR HIM TO COMPLETE PRIOR TO DIALYSIS. DR. ASTUDILLO AWARE AND OKAY WITH DOING ON 09/29/17 INSTEAD. SECOND DOSE OF IV LASIX THIS MORNING CLARIFIED BY DR. ASTUDILLO AND OKAYED TO GIVE. DR. RAY ON UNIT AND MADE AWARE OF PT. CONDITION AND PLAN. HE STATED HE DOES NOT FEEL PT. NEEDS THOROCENTISIS, AND WE SHOULD WAIT TO SEE IF DIALYSIS HELPS. PT. TOLERATED DIALYSIS WELL. CONTINUES TO BE DROWSY MOST OF THE DAY. UPDATE GIVEN TO PT. FAMILY/[facility] DWAINE UPON VISITATION. PT. DID NOT EAT WELL TODAY, PT. FALLING ASLEEP WITH FOOD IN MOUTH, FOOD REMOVED AND FELT UNSAFE FOR PT. TO ATTEMPT TO CONTINUE TO EAT AT THIS TIME. INCONT. OF STOOL X2 TODAY, LOOSE IN NATURE BUT DOES NOT APPEAR TO BE CDIFF. HOURLY ROUNDING COMPLETED THROUGH OUT THE DAY FOR PT. SAFETY.
[2017-09-29] VITALS: BP 131/65
[2017-09-29 03:46] VITALS: BP 150/56
[2017-09-29 05:15] LABS: ABSOLUTE BASOPHILS 0.1 thou/uL (0.0-0.2); ABSOLUTE LYMPHOCYTES 0.5 thou/uL (0.8-5.3); ABSOLUTE MONOCYTES 1.1 thou/uL (0.0-1.2); ABSOLUTE NEUTROPHILS 14.4 thou/uL (1.6-8.1); BASOPHILS 0.7 %; HEMOGLOBIN 8.2 gm/dL (14.0-18.0); LYMPHOCYTES 3.3 %; MCH 29.9 pg (26.0-34.0); MCV 90.5 fL (80.0-100.0); MONOCYTES 6.5 %; MPV 10.6 fl. (7.2-11.1); NUCLEATED RBCS 0 /100WBC; PLATELET COUNT* 117 thou/uL (150-400); POLYS 89.5 %; RBC 2.76 mil/uL (4.50-6.00); RDW-CV 16.6 % (10.5-14.5); WBC 16.1 thou/uL (4.0-11.0)
--- NOTE | 2017-09-29 05:23 | NUR ---
ASSUMED CARE AROUND 1930. PT A/OX1-2, SLEPT MOST THE NIGHT, DROWSY BUT ARROUSABLE TO VERBAL STIMULI. TELE MONITOR TRACING AFIB WITH HR 60-70'S. BP STABLE. ON 4L NC. SIMPSON TO D/D. REPOSITIONED DURING NIGHT. LEFT IJ SALINE LOCKED, FLUSHING WELL. RIGHT TEMP DIALYSIS CATH. PT REPORTED RIGHT FOOT PAIN THIS AM, TREATED WITH PRN IV MED PER OCT. NO BM THIS SHIFT. PT TOOK PILLS MULTIPLE AT A TIME WITH THIN LIQUIDS WITHOUT ISSUES, HOB ELEVATED. SEE CHARTING. CALL LIGHT IN REACH, BEDALARM ON, WILL CONTINUE WITH PLAN OF CARE.
[2017-09-29 05:38] LABS: ALBUMIN 1.9 g/dL (3.4-5.0); CALCIUM 7.7 mg/dL (8.5-10.1); CREATININE 3.4 mg/dL (0.6-1.3); MAGNESIUM 1.9 mg/dL (1.8-2.4); TOTAL BILIRUBIN 1.2 mg/dL (<0.1-1.0)
[2017-09-29 08:00] VITALS: BP 152/67
[2017-09-29 10:15] LABS: BF RBC 16658 /mm3; TOTAL CELL COUNT 403 /mm3
[2017-09-29 10:21] LABS: BF LYMPHOCYTES 21 %; BF MONOCYTES 16 %; BF POLYS 63 %; BF TISSUE 3 /100 WBC
[2017-09-29 10:22] LABS: CLARITY SLIGHTLY HAZY; COLOR AMBER; SOURCE THORACENTESIS; TOTAL VOLUME 1060 ml
--- NOTE | 2017-09-29 11:39 | NUR ---
CONTINUE TO FOLLOW, DISCUSSED WITH DR ASTUDILLO AND JOSE JPIPING DESIGN SPECIALIST WITH VASCULAR. POSSIBLE NEED FOR LTAC ONCE STABLE. PER JOSE J, PT WILL NEED TUNNELED DIALYSIS CATH PRIOR AND VASCULAR IS STILL CONSIDERING SURGERY IF PT IS STABLE TO PERFORM. WILL RE-EVAL ON MONDAY PER DR ASTUDILLO
[2017-09-29 12:00] VITALS: BP 160/41
[2017-09-29 13:04] LABS: SOURCE THORACENTESIS
[2017-09-29 13:05] LABS: SOURCE THORACENTESIS
--- NOTE | 2017-09-29 16:00 | OP ---
[facility] [address] [place] [address] OPERATIVE REPORT Name: IMTIAZ BRISCOE Room: [address] IN .R.#: [id number] Admission: 09/12/17 Attend Phys: Vane Kovacs Discharge: Date of : 41 Report #: [id number] THIS REPORT FOR: //name// CC: [facility] MD DANIELLE Aguilar DATE OF SERVICE: 09/18/2017 STUDY: Transcutaneous oxygen measurement examination, 6 leads. FINDINGS: Transcutaneous oxygen measurements were obtained with 6 leads of the right lower extremity. Please see exam table for location of leads and associated pictures. Leads 6, 5, 2 and 1 all demonstrated adequate oxygen measurements for wound healing. These were located in the below knee position and above the thigh position. The leads 3 and 4, which represented the toes and feet, demonstrated baseline level of less than 10, but did respond to oxygen challenge. IMPRESSION: This study demonstrates adequate transcutaneous oxygen measurements at the transmetatarsal level for wound healing, but would not likely heal amputation at this level. Below knee amputation could be considered based on these oxygen measurements. There was a response to oxygen distally and hyperbaric oxygen could be considered as an adjunct if clinically appropriate. Clinical correlation is required, reference to the TCOM exam worksheet is also recommended. <ELECTRONICALLY SIGNED> By: Chuck Montoya DO 09/29/17 1600 1222 1236Chuck Montoya DO /iman
[2017-09-29 16:47] VITALS: BP 150/39
[2017-09-29 19:08] LABS: BODY FLUID PH 7.7 (Not Estab.)
--- NOTE | 2017-09-29 19:41 | NUR ---
ASSUMED REPSONSIBILITY OF PT THIS AM PT IS ALERT AND ORIENTED X2 LESS ANXIETY AND CONFUSION NOTED C/O PAIN TO RIGHT FOOT AND CHEST AFTER THORACENTESIS 50MCG OF FENTANYL GIVEN WITH EFFECTIVENESS DRESSING TO RIGHT FOOT CHANGED WITHOUT DIFFICULTY PT HAD MANY BOWEL MOVEMENTS TODAY INCONTINENT START OF AN ODOR TO IT WELL TOLD NIGHT NURSE SWELLING T/O FC DRAINING SCANT AMOUNT OF URINE PLAN FOR DIALYSIS AGAIN TOMORROW SOA NOTED BUT NOT BAD COARSE WITH WHEEZING ON 4L NC REFUSED BIPAP
[2017-09-29 20:30] VITALS: BP 147/61
[2017-09-30] VITALS: BP 155/63
[2017-09-30 04:00] VITALS: BP 166/73
[2017-09-30 06:04] LABS: POTASSIUM 4.3 mmol/L (3.5-5.1)
[2017-09-30 06:06] LABS: CREATININE 4.4 mg/dL (0.6-1.3)
--- NOTE | 2017-09-30 08:32 | NUR ---
PT A/O TO SELF, MORE VERBAL TONIGHT, 5L NC, REFUSED BIPAP AFTER WEARING FOR JUST A FEW MINUTES, AFIB ON THE MONITOR WITH CONTROLLED RATE, MEDS/ASSESSMENT PER CHARTING, HOURLY ROUNDING/FALL PRECAUTIONS IN PLACE, DRESSING CHANGE COMPLETED AND PICUTURES TAKEN AND PLACED ON CHART, POSITION CHANGE Q2H PER TECH, LOOSE BM OVER NIGHT X2, PAIN TREATED TO FEET, VSS, REPORT GIVEN TO DAY RN.
--- NOTE | 2017-09-30 10:20 | NUR ---
ASSUMEDC ARE OF PT AROUND 0730 THIS AM. REFER TO ASSESSMENT. PT TO DIALYSIS AROUND 0745 THIS AM. TELE AFIB. VSS. NO OTHER CONCERNS AT THIS TIME. CLWR. WCTM.
--- NOTE | 2017-09-30 11:56 | NUR ---
PT RETURNED FROM DIALYSIS AT THIS TIME. 3L REMOVED PER DIALYSIS NURSE. VSS. NO OTHER CONCERNS AT THIS TIME. CLWR. WCTM.
[2017-09-30 12:08] VITALS: BP 156/69
[2017-09-30 15:23] VITALS: BP 141/60
[2017-09-30 16:07] LABS: BODY FLUID AMYLASE 20 U/L (()); BODY FLUID LDH 140 IU/L (()); BODY FLUID PROTEIN 1.3 g/dL (())
--- NOTE | 2017-09-30 17:05 | NUR ---
PT PROGRESSING TOWARDS GOALS THIS SHIFT. VSS. PT HAD DIALYSIS W/ 3L FLUID REMOVAL. TELE AFIB. PT NOTED TO BE CONFUSED. PAIN MANAGED WITH IV FENTANYL THIS SHIFT. NO OTHER CONCERNS AT THIS TIME. CLWR. WCTM.
[2017-10-01] VITALS (8 sets, daily range): BP systolic 111–170; BP diastolic 50–118
[2017-10-01 06:15] LABS: HEMATOCRIT 27.1 % (42.0-52.0); HEMOGLOBIN 8.6 gm/dL (14.0-18.0); MCH 29.8 pg (26.0-34.0); MCHC 31.8 g/dL (28.0-37.0); MCV 93.5 fL (80.0-100.0); MPV 10.3 fl. (7.2-11.1); NUCLEATED RBCS 0 /100WBC; PLATELET COUNT* 127 thou/uL (150-400); RBC 2.89 mil/uL (4.50-6.00); RDW-CV 19.5 % (10.5-14.5); WBC 13.4 thou/uL (4.0-11.0)
--- NOTE | 2017-10-01 06:30 | NUR ---
NO SIGN OF DISTRESS, COMPLAINT OF CHEST PAIN, EKG NO CHANGE, NITRO GIVEN. DR BAUMANN NOTIFIED. HYDRALAZINE FOR ELEVATED BP. PATIENT SLEEPING NOW. WILL CONT. TO MONITOR.
[2017-10-01 06:53] LABS: ABSOLUTE EOSINOPHILS 0.7 thou/uL (0.0-0.7); ABSOLUTE LYMPHOCYTES 0.4 thou/uL (0.8-5.3); ABSOLUTE MONOCYTES 0.5 thou/uL (0.0-1.2); ABSOLUTE NEUTROPHILS 11.8 thou/uL (1.6-8.1)
[2017-10-01 06:54] LABS: ANISOCYTOSIS 1+; PLATELET ESTIMATE ADEQUATE
[2017-10-01 07:04] LABS: CALCIUM 8.1 mg/dL (8.5-10.1); CREATININE 3.6 mg/dL (0.6-1.3); POTASSIUM 3.7 mmol/L (3.5-5.1); TOTAL BILIRUBIN 1.2 mg/dL (<0.1-1.0); TOTAL PROTEIN 5.2 g/dL (6.4-8.2)
--- NOTE | 2017-10-01 10:12 | NUR ---
ASSUMED CARE OF PT AROUND 0730 THIS AM. REFER TO ASSESSMENT. PT HAS NO CONCERNS THIS AM. REMAINS ON 4.5L OXYGEN/NC. TELE AFIB. NO OTHER CONCERNS AT THIS TIME. CLWR. WCTM.
--- NOTE | 2017-10-01 13:44 | EKG ---
[place] [address] ELECTROCARDIOGRAM REPORT Name: IMTIAZ BRISCOE Room: [address] ADM IN [facility].#: [id number] Admission: 09/12/17 Attend Phys: Vane Kovacs Discharge: Date of : 41 Report #: [id number] THIS REPORT FOR: //name// [facility] Test Date: 2017-10-01 Test Time: 05:09:08 Pat Name: IMTIAZ DEANN Department: Room: [address] Gender: M Manager Ed: WL : 1945 Requested By: Jah Wilkins Order Number: [id number] MD: Derrek Shelton Measurements Intervals [place] Rate: 62 P: AL: QRS: -60 QRSD: 122 T: 121 QT: 457 QTc: 464 Interpretive Statements Atrial fibrillation Ventricular premature complex Nonspecific IVCD with LAD Consider anterior infarct Abnormal T, consider ischemia, lateral leads Compared to ECG 09/28/2017 04:47:15 Ventricular premature complex(es) now present Intraventricular conduction delay now present T-wave abnormality now present Early repolarization no longer present Myocardial infarct finding still present Possible ischemia still present Electronically Signed On 10-01-2017 13:44:01 AUDIT CLERKS SUPERVISOR by Derrek Shelton [email or web address] <ELECTRONICALLY SIGNED> By: Derrek Shelton MD, FACC 10/01/17 1344 0509 0509 Derrek Shelton MD, [facility] /EPI
--- NOTE | 2017-10-01 17:56 | NUR ---
PT SOMEWHAT PROGRESSING TOWARDS GOALS THIS SHIFT. NOTED CONFUSION AND FORGETFULNESS THIS SHIFT. PT NONCOMPLIANT WITH BOOT TO RLE MOST OF THIS SHIFT. REAPPLIED MULTIPLE TIMES AND PT ABLE TO REMOVE. DISCUSSED THE IMPORTANCE OF BOOT WITH PATIENT. NO OTHER CONCERNS AT THIS TIME. CLWR. WCTM.
[2017-10-02 04:00] VITALS: BP 106/64
[2017-10-02 04:24] LABS: ALBUMIN 1.9 g/dL (3.4-5.0); CALCIUM 7.8 mg/dL (8.5-10.1); CREATININE 4.4 mg/dL (0.6-1.3); POTASSIUM 4.2 mmol/L (3.5-5.1)
--- NOTE | 2017-10-02 06:13 | NUR ---
PATIENT HAS BEEN AWAKE MOST OF NIGHT. AM MEDS GIVEN EARLY ALONG WITH PAIN PILL PATIENT HAD BEEN FALLING ASLEEP TOWARD MORNING. SLEEPING NOW. STILL HAS BEEN COMPLAINING OF CHEST PAIN BUT IN A NON-CARDIAC RELATED MANNER. EKG YESTERDAY WAS UNCHANGED FROM ADMISSION. THIS WAS REPORTED TO DR BAUMANN ON 10-01-2017. WILL CONT. WITH PLAN OF CARE. BED IN LOW POSITION, CALL LIGHT IN REACH. NO SIGN OF DISTRESS AT THIS TIME.
[2017-10-02 08:00] VITALS: BP 145/64
--- NOTE | 2017-10-02 10:15 | CNG ---
[address] [address] CYTO-NONGYN REPORT PROCEDURE Name: IMTIAZ BURT Room: [address] IN [facility]#: [id number] Admission: 09/12/17 Date of : 41 Discharge: Report #: [id number] Path Case #: [id number] CYTOPATHOLOGY REPORT COLLECTION DATE: 09/28/2017 RECEIVED DATE: 09/29/2017 SUBMITTING PHYS: Dr. Juan J Huang OTHER PHYS: Dr. Kavon Varela CLINICAL HISTORY: Gangrene and cellulitis right foot; sepsis; Acute kidney failure with tubular necrosis. SPECIMEN(S) RECEIVED: A.Pleural fluid * * * * * * * * * * * * FINAL DIAGNOSIS: A. Right pleural fluid: - No malignant cells identified. - Reactive mesothelial cells, red blood cells and few inflammatory cells (see comment). COMMENT: Review of Dr. Juan J Huang' procedure dated 09/29/2017 reveals an ultrasound-guided right thoracentesis to have been performed. (JAY:mml; 10/02/2017) PATHOLOGIST: Deon Nicole M.D. REPORT ELECTRONICALLY SIGNED BY: Deon Nicole M.D. DATE/TIME: 10/02/2017 10:14 * * * * * * * * * * * * GROSS PATHOLOGY: A. Pleural fluid: The specimen is submitted fixed, labeled "Imtiaz Burt". Received by the Cytology Department is 35 mL of cloudy pink fluid. One ThinPrep slide and an alcohol fixed cell block were prepared. (09.29.2017) TEST RIDER(S): MATEUS Ko([facility]) INITIAL CPT CODE(S): A; 06595, 07045 Professional services performed [place] [facility] [place] [address] Technical services performed by [facility] at [address] [place] [address], [address] [address]. [place] [address] CYTO-NONGYN REPORT PROCEDURE Name: IMTIAZ BURT Room: [address] IN [facility]#: [id number] Admission: 09/12/17 Date of : 41 Discharge: Report #: [id number] Path Case #: [id number] [facility] [address] [place] [address], [address] [place] [address] PHONE: [phone] DIRECTOR: Kameron Malin M.D. * * * END OF REPORT * * *
--- NOTE | 2017-10-02 11:14 | NUR ---
WOUND CARE NOTE: REASSESSMENT OF RIGHT FOOT WOUNDS. RIGHT 5TH METATARSAL HEAD: CONTINUES WITH BLACK, DRY ESCHAR MEASURING 3X3.5X0.1. NO DRAINAGE NOTED. RANDY-WOUND INTACT. CLEANSED GENTLY WITH WOUND CLEANSER, PATTED DRY. PAINTED WITH BETADINE. RIGHT HEEL: BLACK ESCHAR MEASURING 0.6X1.2X0.1. RANDY-WOUND WITH BLANCHABLE ERYTHEMA. PATIENT ADMITS TO PAIN AT THE SITE AND HE HASN'T BEEN WEARING HIS BOOTS. CLEANSED WITH WOUND CLEANSER, PATTED DRY. PAINTED WITH BETADINE. STRESSED THE IMPORTANCE OF WEARING BOOTS TO HIS FEET, NOT ONLY JUST THE RIGHT FOOT, BUT THE LEFT WELL. PATIENT ALLOWED FOR ME TO PLACE THE RIGHT BOOT, BUT REFUSED TO WEAR THE LEFT. PATIENT HAS BLANCHABLE ERYTHEMA TO THE LATERAL ASPECT OF HIS LEFT FOOT. EDUCATED THAT IF WE DID NOT ELEVATE HE FOOT OFF THE BED THAT HE WOULD DEVELOP WOUNDS TO THIS FOOT. PATIENT SHOOK HIS HEAD NO, CLARIFIED WHAT HE MEANT BY THAT. PATIENT STATED "I DON'T WANT TO WEAR THEM" EDUCATED AGAIN ON PREVENTING WOUNDS WITH THE BOOTS. PATIENT COMMUNICATED UNDERSTANDING, BUT CONTINUED TO REFUSE TO WEAR THEM. RECOMMEND ELEVATE BILATERAL FEET OFF BED WITH BOOTS OR PILLOWS BETADINE DAILY TO ESCHARS ENCOURAGE GOOD NUTRITION AND HYDRATION WHEN ABLE TO EAT AGAIN.
[2017-10-02 12:14] VITALS: BP 166/57
--- NOTE | 2017-10-02 13:48 | NUR ---
CONTINUE TO FOLLOW. MET WITH PT, HE IS MORE ALERT AND ORIENTED TODAY. DISCUSSED POSSIBLE NEED FOR LTAC AND DIALYSIS. PT IN AGREEMENT. ASKING ABOUT 'WHEN' HAS VASCULAR CONSULT FOR TUNNELED CATH. PER INSURANCE, IN NETWORK WITH [facility], CALLED AND FAXED REFERRAL TO [facility].
[2017-10-02 17:23] VITALS: BP 172/64
--- NOTE | 2017-10-02 17:26 | EKG ---
[place] [address] ELECTROCARDIOGRAM REPORT Name: IMTIAZ BRISCOE Room: [address] ADM IN [facility]#: [id number] Admission: 09/12/17 Attend Phys: Vane Kovacs Discharge: Date of : 41 Report #: [id number] THIS REPORT FOR: //name// [facility] Test Date: 2017-10-02 Test Time: 13:07:21 Pat Name: IMTIAZ DEANN Department: Room: [address] Gender: M Hospitalist Nocturnist Physician: FLAKO : 1945 Requested By: Donaldo Varela Order Number: [id number] Rey MD: Scott Zaragoza Measurements Intervals [place] Rate: 54 P: [place]: QRS: -59 QRSD: 121 T: 121 QT: 455 QTc: 432 Interpretive Statements Atrial fibrillation Left bundle branch block Compared to ECG 10/01/2017 05:09:08 Left bundle-branch block now present Ventricular premature complex(es) no longer present Electronically Signed On 10-02-2017 17:26:25 TRACTOR ENGINE MECHANIC by Scott Zaragoza [email or web address] <ELECTRONICALLY SIGNED> By: Scott Zaragoza MD, [facility] 10/02/17 1726 1307 1307 Scott Zaragoza MD, [facility] /EPI
--- NOTE | 2017-10-02 19:06 | NUR ---
PATIENT RESING IN BED. TUNNELED DIALYSIS CATH PLACED TODAY IN IR, RIGHT TEMPORARY DIALYSIS CATHETER REMOVED. NATHALIE OFF BEDREST. EXTENSIVE TIME SPENT TODAY EDUCATING PATIENT ON THE MEED TO USE SUPPORTIVE BOOTS TO REMOVE PRESSURE POINTS TO BOTH FEET, NATHALIE FINALLY AGREED TO THE USE OF BOOTS. BOTH FEET PLACE IN BOOTS. NATHALIE ALSO EDUCATED ON THE NEED FOR FREQUENT REPOSITIONING BUT PATIENT FREQUENTLY REFUSES THE REPOSITION. HOURLY ROUNDING PERFORNED FOR PATIENT SAFETY.
[2017-10-02 20:00] VITALS: BP 138/82
[2017-10-03 01:18] VITALS: BP 160/65
[2017-10-03 04:53] VITALS: BP 164/67
[2017-10-03 05:50] LABS: ABSOLUTE LYMPHOCYTES 0.4 thou/uL (0.8-5.3); ABSOLUTE MONOCYTES 0.7 thou/uL (0.0-1.2); ABSOLUTE NEUTROPHILS 12.7 thou/uL (1.6-8.1); BASOPHILS 0.2 %; HEMOGLOBIN 8.8 gm/dL (14.0-18.0); LYMPHOCYTES 2.9 %; MCH 30.2 pg (26.0-34.0); MCHC 32.4 g/dL (28.0-37.0); MCV 93.2 fL (80.0-100.0); MPV 10.5 fl. (7.2-11.1); NUCLEATED RBCS 0 /100WBC; PLATELET COUNT* 145 thou/uL (150-400); POLYS 91.9 %; RDW-CV 20.4 % (10.5-14.5); WBC 13.8 thou/uL (4.0-11.0)
[2017-10-03 06:02] LABS: CALCIUM 7.8 mg/dL (8.5-10.1); CREATININE 5.2 mg/dL (0.6-1.3); POTASSIUM 4.4 mmol/L (3.5-5.1); TOTAL BILIRUBIN 1.3 mg/dL (<0.1-1.0); TOTAL PROTEIN 5.4 g/dL (6.4-8.2)
[2017-10-03 06:49] LABS: PREALBUMIN 16.9 mg/dL (18.0-35.7)
[2017-10-03 08:00] VITALS: BP 191/88
--- NOTE | 2017-10-03 11:37 | NUR ---
FAXED UPDATED CLINICAL TO [facility]. THEY HAVE SUBMITTED FOR INS AUTH FOR LTAC. UPDATED PT WHO HAS SOME CONFUSION TODAY. ALSO CALLED AND UDPATED S/O DWAINE RE: LTAC NEED. AWAIT INSURANCE AUTH
--- NOTE | 2017-10-03 12:04 | OP ---
[facility] [address] [place] [address] OPERATIVE REPORT Name: IMTIAZ BRISCOE Room: [address] IN [facility]#: [id number] Admission: 09/12/17 Attend Phys: Vane Kovacs Discharge: Date of : 41 Report #: [id number] THIS REPORT FOR: //name// CC: [facility] MD DANIELLE Aguilar DATE OF SERVICE: 10/02/2017 PREOPERATIVE DIAGNOSIS: Acute on chronic kidney disease. POSTOPERATIVE DIAGNOSIS: Acute on chronic kidney disease. OPERATION: 1. Removal of temporary right IJ dialysis catheter and placement of a right IJ tunneled dialysis catheter. 2. Ultrasound-guided access to right internal jugular vein. SURGEON: Robin Diaz DO INSERTING MACHINE OPERATOR: None. ANESTHESIA: Sedation with local. ESTIMATED BLOOD LOSS: 25 mL. FLUIDS: None. URINE OUTPUT: None. SPECIMENS: None. IMPLANTS: A Bard RetrO 19 cm tunneled dialysis catheter in the right IJ. COMPLICATIONS: None. FINDINGS: Ultrasound demonstrated the right IJ to be soft and compressible, suitable for access. The catheter was placed under fluoroscopic guidance with the tip at the right atrium SVC junction, aspirated and flushed well. CLINICAL HISTORY: The patient is a 72-year-old man with known chronic kidney disease. He has developed some acute kidney injury and is requiring dialysis. This is after PEA arrest. His kidneys have not recovered and is in need of conversion from a temporary to tunneled line. DETAILS OF PROCEDURE: After informed consent was obtained, the patient was [facility] [address] [place] [place] [address] OPERATIVE REPORT Name: IMTIAZ BRISCOE Room: [address] IN [facility]#: [id number] Admission: 09/12/17 Attend Phys: Vane Kovacs Discharge: Date of : 41 Report #: [id number] taken to the angio suite, placed on the angio bed in the supine position. The right neck was prepped and draped in usual sterile fashion. The temporary dialysis catheter was removed and manual pressure was held over this area. Full timeout was performed identifying correct patient and procedure. Next using ultrasound guidance, the right internal jugular vein was identified. Skin and subcutaneous tissues were anesthetized with local anesthetic. The IJ was accessed with an 18 gauge needle using ultrasound. These images were preserved. Using Seldinger technique, a wire was passed under fluoroscopic guidance. I then made a skin incision of the right neck. I then placed the introducer sheath over the wire and again placed a second wire under fluoroscopic guidance. We then certainly dilated the tract and then passed the catheter over the wires under fluoroscopic guidance, the tip at the right atrium SVC junction. The wires and stylets were removed. The catheter was trimmed to length. Right chest wall was anesthetized and a small skin incision was made. A tunneler was passed retrograde up to the neck incision. The catheter was then affixed to the tunneler, tunneled under fluoroscopic guidance to ensure no kinks or twist. The catheter was then tailored to length and both ports were applied. Both ports aspirated and flushed well. Both ports were then packed with concentrated heparin. The catheter was then secured to the chest wall with 3-0 Monocryl suture. The neck incision was closed with 3-0 Monocryl suture. Sterile dressing was applied. All sponge, sharp and instrument counts reported as correct x 2. He tolerated the procedure well and was transferred back to his room in stable condition. The catheter may be used immediately for dialysis needs. <ELECTRONICALLY SIGNED> By: Robin Diaz DO 10/03/17 1204 1515 1738Ahumble Diaz DO /nt
[2017-10-03 12:16] VITALS: BP 131/88
--- NOTE | 2017-10-03 15:48 | CON ---
[address] [address] CONSULTATION Name: IMTIAZ BRISCOE Room: [address] IN [facility].#: [id number] Admission: 09/12/17 Attend Phys: Vane Kovacs Discharge: Date of : 41 Report #: [id number] THIS REPORT FOR: //name// [facility] DATE OF SERVICE: 09/22/2017 I have personally seen and examined the patient and reviewed all labs and imaging. The patient with history of hypertension, diabetes mellitus, asthma, and discolored right toe who has significant peripheral vascular disease and had a PEA arrest last night and was transferred to ICU. We have been consulted since patient has been anemic. His hemoglobin has dropped from 9-4.5. He has received 3 units of packed RBC and we are waiting for blood levels. There has not been any evidence of rectal bleeding or hematemesis. NG tube also does not reveal any blood. The patient has had a KUB, which appears nondiagnostic with some calcification and also loops of colon with gas in them. We will go ahead and monitor the patient's hemoglobin and start him on a PPI therapy. At some point, he will benefit from endoscopic evaluation. At this time, we will just continue to monitor his H and H. If there is any suspicious of acute bowel ischemia, we will consider CAT scan. At this time, his abdomen is soft. <ELECTRONICALLY SIGNED> By: Dayan Thrasher MD 10/03/17 1548 1503 2022Dayan Thrasher MD /nt
--- NOTE | 2017-10-03 18:00 | NUR ---
NATHALIE RESTING IN CHAIR IN ROOM. UP WITH MAX ASSIST AND GAIT BELT TO CHAIR. VITAL SIGNS STABLE AND PATIENT IN NO APPARENT SIGNS OF DISTRESS AT THIS TIME. DIALYSIS TODAY EITH 3L REMOVED. PATIENT TOLERATED DIALYSIS WELL. TUNNELED DIALYSIS AND PICC LINE CLEAN/DRY/INTACT. PATIENT WAS TOLERANT OF PROTECTIVE BOOTS TODAY. AWAITING INSURANCE AUTHORIZATION FOR TRANSFER. HOURLY ROUNDING FOR PATIENT SAFETY.
[2017-10-03 20:30] VITALS: BP 179/52
[2017-10-04] VITALS: BP 111/72
--- NOTE | 2017-10-04 02:55 | NUR ---
PT A/OX3, 2L NC, AFIB ON THE MONITOR, MEDS/ASSESSMENT PER CHARTING, Q2T IN PLACE, HOURLY ROUNDING/FALL PRECAUTIONS IN PLACE, VSS, FREE FROM C/O PAIN/SOA, SIMPSON IN PLACE, BILAT BOOT ON FEET, WILL CONT TO MONITOR.
[2017-10-04 04:00] VITALS: BP 104/65
--- NOTE | 2017-10-04 07:10 | NUR ---
CHANGE OF SHIFT BEDSIDE REPORT GIVEN ASSUMED PATIENT CARE PATIENT SEEN AT BEDSIDE, ASLEEP BED ALARM ON
[2017-10-04 08:00] VITALS: BP 174/95
[2017-10-04 11:52] VITALS: BP 106/75
--- NOTE | 2017-10-04 12:17 | NUR ---
CONTINUE TO FOLLOW, RECEIVED CALL FROM [facility], PT WAS DENIED ADMIT BY HIS INSURANCE. SET UP PEER TO PEER AND DISCUSSED WITH DR ASTUDILLO. AWAIT DECISION.
[2017-10-04 15:43] VITALS: BP 119/75
--- NOTE | 2017-10-04 17:02 | NUR ---
RECEIVED CALL BACK FROM [facility]. THEY WILL CONSIDER REFERRAL.
[2017-10-05] VITALS (7 sets, daily range): BP systolic 124–169; BP diastolic 52–86
--- NOTE | 2017-10-05 04:18 | NUR ---
ALERT, CONFUSED PER BASELINE. TURN EVERY 2 HOURS. IV STARTED IN LT HAND. DENIES COMPLAINTS OF PAIN. PAIN PILL EARLIER IN SHIFT. IV STARTED IN LT HAND. DIALYSIS TODAY. NO SIGN OF DISTRESS, WILL CONT. TO MONITOR. A-FIB PER NORM ON TELE. BED IN LOW POSITION, CALL LIGHT IN REACH.
[2017-10-05 05:29] LABS: HEMOGLOBIN 7.9 gm/dL (14.0-18.0); MCH 30.9 pg (26.0-34.0); MCHC 32.9 g/dL (28.0-37.0); MPV 10.1 fl. (7.2-11.1); NUCLEATED RBCS 0 /100WBC; PLATELET COUNT* 136 thou/uL (150-400); RBC 2.56 mil/uL (4.50-6.00); RDW-CV 20.4 % (10.5-14.5); WBC 13.5 thou/uL (4.0-11.0)
[2017-10-05 06:06] LABS: ALBUMIN 2.1 g/dL (3.4-5.0); CREATININE 4.5 mg/dL (0.6-1.3); POTASSIUM 4.6 mmol/L (3.5-5.1); TOTAL BILIRUBIN 1.3 mg/dL (<0.1-1.0); TOTAL PROTEIN 5.3 g/dL (6.4-8.2)
[2017-10-05 06:37] LABS: ABSOLUTE LYMPHOCYTES 0.5 thou/uL (0.8-5.3); ABSOLUTE MONOCYTES 0.3 thou/uL (0.0-1.2); ABSOLUTE NEUTROPHILS 12.7 thou/uL (1.6-8.1); HYPOCHROMASIA 1+; OVALOCYTES Occasional; PLATELET ESTIMATE DECREASED; SCHISTOCYTES Occasional
[2017-10-05 06:38] LABS: ANISOCYTOSIS 1+; POIKILOCYTOSIS 1+
--- NOTE | 2017-10-05 09:49 | NUR ---
ASSUMED CARE OF PT AT 0730. PT TO GO TO DIALYSIS AT 0800 VIA BED. REPORT GIVEN TO RAYA AUTOMOTIVE TIRE TECHNICIAN. PT A&0X3, FORGETFUL AND CONFUSED. DEMENTIA NOTED. PT TRACING AFIB ON THE EXTRUSION PROCESS OPERATOR. ON 2L NC SAT 96%. PT DENIES ANY PAIN OR SHORTNESS OF BREATH. SIMPSON TO DEPENDENT DRAINAGE. RIGHT CHEST DIALYSIS CATHETER IN PLACE. LEFT IJ TO BE DISCONTINUED TODAY. GANGRENE AND CELLULITIS NOTED TO RIGHT HEEL AND 5TH METATARSAL. AM ASSESSMENT CHARTED. MEDICATIONS PER MAR AFTER PT COMPLETES DIALYSIS. PT REPOSITIONED EVERY 2 HOURS FOR COMFORT. HOURLY ROUNDING OBSERVED. BED IN LOW POSITION. BED ALARM IN PLACE. FALL PRECAUTIONS IN PLACE. CALL LIGHT WITHIN REACH. WILL CONTINUE PLAN OF CARE.
--- NOTE | 2017-10-05 15:55 | NUR ---
LEAH SPOKE TO [facility] WITH [facility] AND SHE INFORMS THAT THE PATIENTS REFERRAL IS UNDER REVIEW BY THE [facility], AND ARE REQUESTING WOUND CARE TO ASSESS THE FACILITY'S ABILITY TO MEET THE PATIENTS NEEDS. [facility] ALSO INFORMS THAT THE FACILITY'S ABILITY TO ACCEPT THE PATIENT IS ALSO DEPENDENT ON DCI'S ABILITY TO ACCEPT PATIENT FOR DIALAYSIS. CM FAXED PATIENT'S WOULD CARE INFO TO [facility]. LEAH ALSO RECEIVED A CALL FROM DAINA WITH [facility] AND SHE INFORMS THAT [facility]'S NURSE PACKERHEAD MACHINE OPERATOR IS REVIEWING THE PATIENTS CLINICAL INFO, AND ASSESSING THE PATIENTS INSURANCE BENEIFTS TO DETERMINE ABILITY TO ACCEPT THE PATIENT. CM WILL REMAIN AVIALABLE TO ASSIST AND FOLLOW NEEDED.
--- NOTE | 2017-10-05 18:03 | NUR ---
NO ACUTE CHANGES THROUGHOUT SHIFT. REFER TO CHARTING. CALVIN GUZMAN'Vane THIS AFTERNOON. LEFT IJ CENTRAL LINE DISCONTINUED THIS AFTERNOON. PT HAD DIALYSIS TODAY. TOLERATED WELL. TOOK OFF 3L PER RAYA WASTE PICKER. PT CONTINUES TO TRACE AFIB ON THE SHOP HELPER. ON 2L NC SAT UPPER 90'S. PT DENIES ANY SHORTNESS OF BREATH. PT COMPLAINED OF GENERALIZED PAIN. TREATED WITH PRN HYDROCODONE WITH RELIEF. PT CONFUSED AND FORGETFUL THROUGHOUT SHIFT. MEDICATIONS PER OCT. PT REPOSITIONED EVERY 2 HOURS FOR COMFORT. HOURLY ROUNDING OBSERVED. BED IN LOW POSITION. BED ALARM IN PLACE. FALL PRECAUTIONS IN PLACE. CALL LIGHT WITHIN REACH. WILL CONTINUE PLAN OF CARE.
[2017-10-06] VITALS (7 sets, daily range): BP systolic 141–170; BP diastolic 50–86
--- NOTE | 2017-10-06 03:16 | NUR ---
PT ALERT CONFUSED. TELEMETRY SHOWS AFIB OCCASIONAL VENTRICULAR ECTOPY. HD CATH RIGHT CHEST. O2 AT 2 LITERS NC. WILL CONTINUE TO MONITOR.
[2017-10-06 05:35] LABS: ABSOLUTE LYMPHOCYTES 0.4 thou/uL (0.8-5.3); ABSOLUTE MONOCYTES 0.7 thou/uL (0.0-1.2); ABSOLUTE NEUTROPHILS 12.6 thou/uL (1.6-8.1); BASOPHILS 0.3 %; HEMATOCRIT 24.6 % (42.0-52.0); HEMOGLOBIN 7.9 gm/dL (14.0-18.0); LYMPHOCYTES 3.1 %; MCH 30.4 pg (26.0-34.0); MCHC 32.1 g/dL (28.0-37.0); MCV 94.8 fL (80.0-100.0); MONOCYTES 5.2 %; MPV 10.4 fl. (7.2-11.1); NUCLEATED RBCS 0 /100WBC; PLATELET COUNT* 128 thou/uL (150-400); POLYS 91.4 %; RDW-CV 20.7 % (10.5-14.5); WBC 13.8 thou/uL (4.0-11.0)
[2017-10-06 06:42] LABS: ALBUMIN 2.2 g/dL (3.4-5.0); CALCIUM 8.3 mg/dL (8.5-10.1); CREATININE 2.9 mg/dL (0.6-1.3); POTASSIUM 4.5 mmol/L (3.5-5.1); TOTAL BILIRUBIN 1.2 mg/dL (<0.1-1.0); TOTAL PROTEIN 5.5 g/dL (6.4-8.2)
--- NOTE | 2017-10-06 09:46 | CON ---
[address] [address] CONSULTATION Name: IMTIAZ BRISCOE Room: [address] IN ..#: [id number] Admission: 09/12/17 Attend Phys: Vane Kovacs Discharge: Date of : 41 Report #: [id number] THIS REPORT FOR: //name// CC: FAM unknown [facility] Kavon Aguilar DATE OF SERVICE: 09/15/2017 REQUESTING PHYSICIAN: Dr. Wilkins. REASON FOR CONSULTATION: Acute kidney injury. HISTORY OF PRESENT ILLNESS: The patient is a 72-year-old white man, who was admitted to the hospital on 09/12/2017 with complaint of right toe problem. He was diagnosed with osteomyelitis, admitted to the hospital and vancomycin with Zosyn treatment was initiated. The patient was seen by Dr. Ramos, infectious disease doctor, and his assessment was chronic ulceration involving the lateral aspect of the foot, continue current empiric antibiotic coverage. ____ was also consulted, his assessment was cellulitis, no evidence of osteomyelitis. However, there is an MRI, which was done later on and MRI revealed osteomyelitis of the fifth metatarsal head. His creatinine on admission was 1.4 and that is his baseline, it was 2.1 yesterday, 2.1 today. PAST MEDICAL HISTORY: Significant for: 1. Diabetes mellitus type 2. 2. History of hypertension. 3. History of chronic kidney disease stage 3. 4. History of chronic obstructive pulmonary disease, requiring oxygen. MEDICATIONS: Reviewed. Prior to admission, he was on spironolactone, metoprolol, atorvastatin, iron sulfate. Here in the hospital, he was started on digoxin, metoprolol, Zosyn. His vancomycin was discontinued. He did have elevated vancomycin level at 25 yesterday. FAMILY HISTORY: Noncontributory. SOCIAL HISTORY: Positive for tobaccoism. REVIEW OF SYSTEMS: Positive for chronic shortness of breath. Denies chest pain. He does have some polyuria and nocturia. PHYSICAL EXAMINATION: GENERAL: [place] [address] CONSULTATION Name: IMTIAZ BRISCOE Room: [address]#: [id number] Admission: 09/12/17 Attend Phys: Vane Kovacs Discharge: Date of : 41 Report #: [id number] VITAL SIGNS: Blood pressure 137/63, heart rate is 100, respiratory rate is 18, temperature is 38.4. HEENT: Pupils round. NECK: Supple. LUNGS: Coarse breath sounds. CARDIOVASCULAR: Regular rate. ABDOMEN: Soft. EXTREMITIES: His right foot is dressed. ASSESSMENT: A 72-year-old man with osteomyelitis of the fifth metatarsal head and proximal phalanx. He has acute kidney injury that is probably due to infection with acute interstitial nephritis and/or due to vancomycin toxicity. His vancomycin level was 25. Vancomycin was stopped. The patient is nonoliguric. So at this point, I would continue with hydration. He is receiving NS at 100 mL an hour and making good urine. I will also order a renal ultrasound. We will monitor his labs, I's and O's, and would avoid nephrotoxins. PROBLEM LIST: 1. Chronic kidney disease stage 3. 2. Severe chronic obstructive pulmonary disease. 3. History of diabetes mellitus type 2. Overall, his renal functions are stable. Continue with current treatment. Thank you very much for asking my opinion on acute kidney injury of the patient. <ELECTRONICALLY SIGNED> By: Haresh Nguyen MD 10/06/17 0946 1618 0000Alexaedvin Nguyen MD /nt
--- NOTE | 2017-10-06 09:54 | NUR ---
ASSUMED CARD OF PT THIS AM AROUND 0715- RETAIL SERVICE TECHNICIAN IN PLACE ORDERED, TRACING A FIB RATE CONTROLLED- UPON ASSESSMENT PT NOTED TO BE RESTING IN BED- PT A&O X1 WITH NOTED CONFUSION- INCONTINENT OF BOWEL AND BLADDER- OLIGURIA NOTED R/T DIALYSIS PT- BED REST IN PLACE INDICATED, Q [address]- COURSE LUNG SOUNDS NOTED, RESP EVEN AND UN-LABORED- VSS, O2 SAT 97% ON 2L VIA NC- ABDOMEN SOFT/ROUND/NON-TENDER, BS X4 QUADS- LAST BM REPORTED 10/04/17- IV NOTED TO RIGHT FA INTACT AND SL- TEMP DIALYSIS PORT NOTED TO RIGHT CHEST WITH DRESSING IN PLACE AND C/D/I- BS MONIOTORED ORDERED, SSI PRESCIBED- RIGHT HEEL SCAB NOTED, CHAPARRITA WITH NO S/S INFECTION- FAIR PO INTAKE NOTED THIS AM WITH BREAKFAST- PT DENIES ANY C/O PAIN/DISCOMFORT AT THIS TIME- CALL LIGHT AND PERSONAL BELONGINGS WITH IN REACH-HOURLY ROUNDS IN PLACE R/T SAFETY/NEEDS- ALL NEEDS MET AT THIS TIME-WCTM
--- NOTE | 2017-10-06 10:12 | NUR ---
LET MESSAGE WITH CASEY PLACE TO CHECK ON DECISION RE: SNF. FAXED UPDATED CLINICAL NOTES TO [facility] PER REQUEST
--- NOTE | 2017-10-06 16:18 | NUR ---
RECEIVED CALLS BACK FROM [facility] AND FROM [facility] . BOTH HAVE ACCEPTED PT BUT [facility] CANNOT START ANY DIALYSIS ON PT BEFORE MONDAY. FAXED [facility] UPDATED INFO REQUESTED TO [phone]. FAXED UPDATED CLINICALS TO [facility]. SHE RECEIVED AUTH FROM [facility] AND THEY WILL ACCEPT PT TOMORROW. PT WILL DIALYZE FIRST AND THEN BE DC'D. DISCUSSED WITH DR BAUMANN. PT UPDATED, HE IS STILL HAVING SOME CONFUSION, QUESTIONS ANSWERED. CALL TO S/O AND DPOA/DWAINE PAEZ. SHE WAS IN AGREEMENT AND WANTS CALLED WITH DC PLANS. [facility] [phone] FAX [phone] ASKED THAT WE USE [facility] [phone]
--- NOTE | 2017-10-06 17:02 | NUR ---
PT CURRENTLY UP IN BED SIDE RECLINER, NOTED TO WORK WITH THERAPIES PRESCIBED ADN TOLERATING WELL- BUCKRAM SEWER IN PLACE AND CONTINUED ORDERED, TRACING A-FIB- FAIR PO INTAKE NOTED THIS SHIFT WITH MEALS- D/C PENDING FOR AKHIL POST DIALYISIS- DIALYSIS SCHEDULED PER NEPHROLOGY- IV TO RIGHT FA INTACT AND SL- RIGHT CHEST PORT INTACT, DRESSING C/D/I- RIGHT LATERAL FOOT, LEFT MET 5TH TOE PAINTED WITH BETADINE INDICATED- HEELS ELEVATED ON NPILLOW INDICATED THIS SHIFT- BS AC WITH SSI PRESCIBED- PT DENIES PAIN/DISCOMFORT AT THIS TIME- CALL LIGHT AND PERSONAL BELONGINGS WITH IN REACH- HOURLY ROUNDS CONTINUED- ALL NEEDS MET AT THIS TIME-WCTM
[2017-10-07] VITALS (8 sets, daily range): BP systolic 109–167; BP diastolic 49–75
--- NOTE | 2017-10-07 04:11 | NUR ---
ASSUMED CARE OF PT AT 1900. PT IS CONFUSED. VSS. MARGARITA. NO COMPLAINTS OF PAIN. PT IS IN A FIB. PT IS SLEEPING QUIETLY IN BED. RESPIRATIONS ARE EVEN AND NONLABORED. WILL CONTINUE TO MONITOR PT.
[2017-10-07 05:27] LABS: HEMATOCRIT 23.3 % (42.0-52.0); HEMOGLOBIN 7.7 gm/dL (14.0-18.0); MCH 31.1 pg (26.0-34.0); MCHC 33.1 g/dL (28.0-37.0); MPV 11.3 fl. (7.2-11.1); RBC 2.48 mil/uL (4.50-6.00); RDW-CV 20.8 % (10.5-14.5); WBC 16.4 thou/uL (4.0-11.0)
[2017-10-07 05:35] LABS: ALBUMIN 2.2 g/dL (3.4-5.0); CALCIUM 8.2 mg/dL (8.5-10.1); CREATININE 3.5 mg/dL (0.6-1.3); POTASSIUM 4.5 mmol/L (3.5-5.1); TOTAL BILIRUBIN 1.3 mg/dL (<0.1-1.0); TOTAL PROTEIN 5.6 g/dL (6.4-8.2)
--- NOTE | 2017-10-07 10:33 | NUR ---
ASSUMED CARE OF PT THIS AM AROUND 0715- PROJECT MANAGER/DESIGN MANAGER IN PLACE ORDERED, TRACING A-FIB- UPON ASSESSMENT PT NOTED TO BE RESTING IN BED- PT A&O X1 WITH NOTED CONFUSION- INCONTINENT OF BOWEL AND BLADDER, OLIGURIA NOTED- BED REST IN PLACE WITH Q 2 HOUR TURNS- COURSE LUNG SOUNDS NOTED, RESP EVEN AND UN-LABORED- BP THIS AM NOTED AT 158/65- PT OFF UNIT TO DIALYSIS THIS AM AT 0800- RECIEVED PHONE CALL FROM DIALYSIS NURSE AROUND 0940 OF ELEVATED BP OF 222/201- PRN HYDRALAZINE TAKEN TO DIALYSIS AND GIVEN THIS AM AT 0945- OF 1036 DIALYSIS NURSE REPORTS BP TO BE IMPROVED AT 139/90- ABDOMEN SOFT/ROUND/NON-TENDER, BS X4 QUADS- LAST BM REPORTED 10/06/17- +1 BLE EDEMA NOTED- IV NOTED TO LEFT FA INTACT AND SL- RIGHT CHEST PORT NOTED C/D/I- PT DENIES ANY C/O PAIN/DISCOMFORT AT THIS TIME- CALL LIGHT AND PERSONAL BELONGINGS WITH IN REACH- ALL NEEDS MET AT THIS TIME- WCTM
--- NOTE | 2017-10-07 12:35 | NUR ---
REPORT RECIEVED FORM WALLYDIALYSIS NURSE POST COMPLETION- REPORTED TO HAVE PULLED OFF 2.5L- POST VS REPORTED 156/77 HR- 78- PT ARRIVED BACK TO UNIT VIA BED PER THIS NURSE @ 1150- VS AT THIS TIME NOTED TO BE 131/60 HR- 83- PT DENIES ANY C/O PAIN/DISCOMFORT AT THIS TIME- WCTM
[2017-10-07] MEDS ORDERED: ACCUNEB SO1.25 MG/1 INH ×2 (15:42)
[2017-10-07] MEDS ORDERED: CARVEDILOL3.125 MG PO (15:49)
--- NOTE | 2017-10-07 15:49 | NUR ---
DC ORDERS TO SNF RECEIVED. PT GO DC TO [facility] AND HAVE DIALYSIS THERE BY [facility]. HAS BEEN ACCEPTED. DISCUSSED WITH PT AND DWAINE, IN AGREEMENT. CALL PLACED TO [facility], SPOKE WITH DANICA, THEY WILL ACCEPT TODAY AND WANT PT AROUND 6PM. CHART COPIED. ORDERS FAXED TO [phone]. SET UP AMBULANCE FOR 1730, PT UNABLE TO TOLERATE SITTING UP FOR RIDE AND IS CONFUSED, UNABLE TO REMAIN SEATED FOR TRANSPORT. CALL TO DWAINE/KORI TO UPDATE AND GIVE ADDRESS AND PHONE INFO FOR [facility]. RN HAS NUMBER TO CALL REPORT
[2017-10-07] MEDS ORDERED: HEPARIN SO5000 UNIT3 SUBQ (15:52)
[2017-10-07] MEDS ORDERED: HYDRALAZINE 2525 MG PO (15:53)
[2017-10-07] MEDS ORDERED: SINGULAIR 10 MG10 M1 PO (15:55)
[2017-10-07] MEDS ORDERED: PREDNISONE 10 M10 MG PO (15:59)
[2017-10-07] MEDS ORDERED: HUMALOG100 UNIT/1 SUBQ (16:04)
[2017-10-07] MEDS ORDERED: SPIRONOLACTONE25 M1 PO (16:05)
--- NOTE | 2017-10-07 17:28 | NUR ---
BP MONITORED POST DIALYSIS ORDERED PER - PT ALESSANDRA NOTED TO BE STABLE FOR SEVERAL HOURS WITH LAST BP REPORTED 133/49 HR- 75- ORDERS RECIEVED PER FOR [facility] TO D/C TO SKILLED TODAY- CM HERE TO SET UP WITH EMT TO TRANSPORT TO [facility] WITH [facility] TIME OF 1730- IV TO LEFT FA D/C'D ALONG WITH HEAD CAGER PRIOR TO D/C- D/C TEACHING/EDUCATION GIVEN TO PT, PT NOTED TO BE CONFUSED AND HARD TO RETAIN INFORMATION AT THIS TIME- BELONGINGS PACKED AND ACCOUNTED FOR PER THIS NURSE AND TECH AND BAGGED FOR TRANSPORT- [facility] WITH CARDS OBTAINED FROM SECURITY PRIOR TO D/C- DRESSING TO RIGHT HEEL CHANGED THIS SHIFTAS PRESCIBED- BETADINE TO RIGHT LATERAL FOOT, RIGHT GREAT TOE, AND LEFT 5TH TOE ORDERED PRIOR TO D/C- REPORT CALLED TO [facility] WITH REPORT GIVEN TO VINCE @ 1700 ; ALL QUESTIONS AND CONCERNS ADDRESSED- PT CURRENLTY RESTING IN BED, WATCHING TV AWAITING [facility] CO[facility]-WCTM
== END 2017-10-07 17:55 | DRG 870 ==
LOC: M.ERS 14:34 → M.ORTHSURG 15:49 → M.TBA-ER 15:49 → M.2W 15:49 → M.ORTHSURG 16:24 → M.2W 09-13 08:36 → M.ICU 09-21 23:04 → M.2W 09-27 12:11
PROVIDERS: Family Medicine; Internal Medicine; Internal Medicine Infectious Disease; Internal Medicine Nephrology; Internal Medicine Pulmonary Disease; Nurse Practitioner Family; Physician Assistant; Registered Nurse; Surgery; ADMIT Internal Medicine
PROC: 0W993ZZ Drainage of Right Pleural Cavity, Percutaneous Approach (ICD-10-PCS; 2017-09-12)
PROC: 5A1955Z Respiratory Ventilation, Greater than 96 Consecutive Hours (ICD-10-PCS; principal; 2017-09-21)
PROC: 0BH17EZ Insertion of Endotracheal Airway into Trachea, Via Natural or Artificial Opening (ICD-10-PCS; principal; 2017-09-21)
PROC: 30233N1 Transfusion of Nonautologous Red Blood Cells into Peripheral Vein, Percutaneous Approach (ICD-10-PCS; 2017-09-22)
PROC: 05HM33Z Insertion of Infusion Device into Right Internal Jugular Vein, Percutaneous Approach (ICD-10-PCS; 2017-09-24)
PROC: B543ZZA Ultrasonography of Right Jugular Veins, Guidance (ICD-10-PCS; 2017-09-24)
PROC: 5A1D70Z Performance of Urinary Filtration, Intermittent, Less than 6 Hours Per Day (ICD-10-PCS; 2017-09-26)
PROC: 5A1D70Z Performance of Urinary Filtration, Intermittent, Less than 6 Hours Per Day (ICD-10-PCS; 2017-09-28)
PROC: 5A09357 Assistance with Respiratory Ventilation, Less than 24 Consecutive Hours, Continuous Positive Airway Pressure (ICD-10-PCS; 2017-09-28)
PROC: 5A1D70Z Performance of Urinary Filtration, Intermittent, Less than 6 Hours Per Day (ICD-10-PCS; 2017-09-30)
PROC: 5A1D70Z Performance of Urinary Filtration, Intermittent, Less than 6 Hours Per Day (ICD-10-PCS; 2017-10-03)
PROC: 5A12012 Performance of Cardiac Output, Single, Manual (ICD-10-PCS; 2017-10-03)
PROC: 5A1D70Z Performance of Urinary Filtration, Intermittent, Less than 6 Hours Per Day (ICD-10-PCS; 2017-10-05)
PROC: 5A1D70Z Performance of Urinary Filtration, Intermittent, Less than 6 Hours Per Day (ICD-10-PCS; 2017-10-07)
DX: A41.9 Sepsis, unspecified organism (principal); N17.0 Acute kidney failure with tubular necrosis; G93.41 Metabolic encephalopathy; J96.22 Acute and chronic respiratory failure with hypercapnia; I21.4 Non-ST elevation (NSTEMI) myocardial infarction; J69.0 Pneumonitis due to inhalation of food and vomit; J96.21 Acute and chronic respiratory failure with hypoxia; N18.6 End stage renal disease; E44.0 Moderate protein-calorie malnutrition; E11.52 Type 2 diabetes mellitus with diabetic peripheral angiopathy with gangrene; L03.115 Cellulitis of right lower limb; I96 Gangrene, not elsewhere classified; I13.0 Hypertensive heart and chronic kidney disease with heart failure and stage 1 through stage 4 chronic kidney disease, or unspecified chronic kidney disease; I48.92 Unspecified atrial flutter; L97.819 Non-pressure chronic ulcer of other part of right lower leg with unspecified severity; M31.9 Necrotizing vasculopathy, unspecified; M86.8X7 Other osteomyelitis, ankle and foot; I42.9 Cardiomyopathy, unspecified; J90 Pleural effusion, not elsewhere classified; D62 Acute posthemorrhagic anemia; J44.1 Chronic obstructive pulmonary disease with (acute) exacerbation; E11.22 Type 2 diabetes mellitus with diabetic chronic kidney disease; J44.9 Chronic obstructive pulmonary disease, unspecified; I25.10 Atherosclerotic heart disease of native coronary artery without angina pectoris; D64.9 Anemia, unspecified; E83.42 Hypomagnesemia; E66.9 Obesity, unspecified; E11.69 Type 2 diabetes mellitus with other specified complication; I50.9 Heart failure, unspecified; I48.91 Unspecified atrial fibrillation; J45.909 Unspecified asthma, uncomplicated; Z90.49 Acquired absence of other specified parts of digestive tract; Z95.1 Presence of aortocoronary bypass graft; Z79.01 Long term (current) use of anticoagulants; Z99.2 Dependence on renal dialysis; Z79.82 Long term (current) use of aspirin; Z79.4 Long term (current) use of insulin; Z79.84 Long term (current) use of oral hypoglycemic drugs; Z68.26 Body mass index [BMI] 26.0-26.9, adult; Z79.899 Other long term (current) drug therapy; Z82.49 Family history of ischemic heart disease and other diseases of the circulatory system; Z99.81 Dependence on supplemental oxygen

== ENCOUNTER → 2017-10-11 | Outpatient (CLI) | payer OTHER ==
[~2017-10-11] MED LIST: ACCUNEB SO1.25 MG/1 INH; ASPIR 8181 MG PO; B12INJ IM; BACTROBAN CREAM30 G1 TOP; CARVEDILOL3.125 MG PO; CELEXA20 MG PO; FOLIC ACID1 MG PO; FUROSEMIDE 20 M20 MG PO; GOLD BOND BODY TOP; HEPARIN SO5000 UNIT3 SUBQ; HUMALOG100 UNIT/1 SUBQ; HYDRALAZINE 2525 MG PO; IRON325 PO; LIPITOR40 MG PO; METFORMIN HCL500 MG PO; NEURONTIN 300300 M1 PO; NEURONTIN600 MG PO; NICOTINE LOZENGE2 MG PO; NITROGLYCERIN0.4 MG SUBLING; PREDNISONE 10 M10 MG PO; PRINIVIL20 M1 PO; PROTONIX 20 MG20 M1 PO; SINGULAIR 10 MG10 M1 PO; SPIRIVA INH; SPIRONOLACTONE25 M1 PO; SYMBICORT160 MCG/4. INH; TOPROL XL25 MG PO; TYLENOL325 MG PO; VITAMIN D2000 UNIT PO; XARELTO15 MG PO
== END ==
LOC: M.WC 03:24
DX: E11.621 Type 2 diabetes mellitus with foot ulcer (principal); L97.511 Non-pressure chronic ulcer of other part of right foot limited to breakdown of skin; L97.211 Non-pressure chronic ulcer of right calf limited to breakdown of skin; I70.235 Atherosclerosis of native arteries of right leg with ulceration of other part of foot; E11.51 Type 2 diabetes mellitus with diabetic peripheral angiopathy without gangrene; I96 Gangrene, not elsewhere classified; E11.69 Type 2 diabetes mellitus with other specified complication; M86.8X7 Other osteomyelitis, ankle and foot; E11.22 Type 2 diabetes mellitus with diabetic chronic kidney disease; N18.3 Chronic kidney disease, stage 3 (moderate); I50.22 Chronic systolic (congestive) heart failure; I25.10 Atherosclerotic heart disease of native coronary artery without angina pectoris; E78.2 Mixed hyperlipidemia; K21.9 Gastro-esophageal reflux disease without esophagitis; J44.9 Chronic obstructive pulmonary disease, unspecified; F33.1 Major depressive disorder, recurrent, moderate; Z87.891 Personal history of nicotine dependence

== ENCOUNTER → 2017-10-18 | Outpatient (CLI) | payer OTHER | LOC: M.WC 04:47 | DX: E11.621 Type 2 diabetes mellitus with foot ulcer (principal); I70.234 Atherosclerosis of native arteries of right leg with ulceration of heel and midfoot; L97.411 Non-pressure chronic ulcer of right heel and midfoot limited to breakdown of skin; L97.511 Non-pressure chronic ulcer of other part of right foot limited to breakdown of skin; E11.69 Type 2 diabetes mellitus with other specified complication; M86.8X7 Other osteomyelitis, ankle and foot; E11.22 Type 2 diabetes mellitus with diabetic chronic kidney disease; I13.2 Hypertensive heart and chronic kidney disease with heart failure and with stage 5 chronic kidney disease, or end stage renal disease; N18.5 Chronic kidney disease, stage 5; I50.22 Chronic systolic (congestive) heart failure; E11.52 Type 2 diabetes mellitus with diabetic peripheral angiopathy with gangrene; I96 Gangrene, not elsewhere classified; I25.10 Atherosclerotic heart disease of native coronary artery without angina pectoris; I48.91 Unspecified atrial fibrillation; E78.2 Mixed hyperlipidemia; K21.9 Gastro-esophageal reflux disease without esophagitis; J44.9 Chronic obstructive pulmonary disease, unspecified; F33.1 Major depressive disorder, recurrent, moderate; Z87.891 Personal history of nicotine dependence ==